=== PATIENT | female | born 1990 | race African-American/Black ===

== ENCOUNTER 2019-02-10 09:00 | Outpatient (RCR) | payer MEDICARE, MEDICAID, SELFPAY ==
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
--- NOTE | 2019-02-10 10:20 | BH.SGPN.GN ---
Behaviors/Verbalizations/Mental Status: [] Eye contact is good. Motor activity is appropriate. Appearance is discheveled. Speech is soft. Mood is depressed. Affect is flat. Thoughts are linear and logical. No evidence of psychosis. Client Response/Progress/Benefit: [] Pt provided input and insight at times adding to the group discussion. Did not add thoughts to the quote of the day. Group discussed the MH benefits to having open and clear communication with support and providers which included; it avoids mind-reading, decreases chances of confusion, helps us get our needs met, helps us get our goals met, helps us manage our symptoms (as support understands appropriate responses). Group also discussed the barriers that tend to impact clear and open communication which include; depression, anxiety, fear, embarrassment, pride, guilt, negative thoughts, feeling that if others know who we truly are they will not like us, and being vulnerable. Pt was attentive during psycho-education on communications styles (aggressive, passive, passive-aggressive, and assertive). Also provided input on the pros and cons to each communication style. Narrative Note: []
--- NOTE | 2019-02-10 11:15 | BH.SGPN.GN ---
Behaviors/Verbalizations/Mental Status: []Client alert and oriented, disheveled appearance. Eye contact fair. Motor activity appropriate. Speech within normal limits. Affect constricted, mood anxious. Thoughts linear, logical, no signs of hallucinations or delusions. Client Response/Progress/Benefit: []Client was a passive participant throughout session, but she engaged when prompted. Client reported she has had to be an aggressive communicator because of certain situations and people. However, client shared being aggressive ?only makes problems worse.? Client shared she wants to work on being more assertive to help get her needs met. Client engaged in activity and able to connect how ineffective communication negatively impacts mental health and relationships. Client identified her communication goal which is to seek safe spaces and people that will promote mental health help. Client seemed to benefit from increased insight into how her communication style impacts her mental health and relationships. Client?s first day of IOP. Client to continue IOP to prevent decompensation and increase mood stability.
--- NOTE | 2019-02-12 09:05 | BH.SGPN.GN ---
Behaviors/Verbalizations/Mental Status: []Client alert and oriented, disheveled appearance. Eye contact good. Motor activity appropriate. Speech within normal limits. Affect full, mood euthymic. Thoughts linear, logical, no signs of hallucinations or delusions. Reviewed client?s symptom tracker, no risk for suicidal ideation, plan, or intent as of 02/12/19. Client Response/Progress/Benefit: []Client responded well to session, attentive throughout. Client reports feeling ?good? today and more positive. Client stated her first day in IOP made her feels anxious and that she also experienced a trauma trigger that day prior to group. Client shared ?I?m better now.? Client?s current mental health wins include a determined outlook on her future and doing well in her college classes. Client reported no stressors today. Client is quiet and did not provide much detail on her wins, but she is still getting used to the group environment. Client appeared to benefit from connecting with peers and reflecting on her reduced anxiety. No progress to document at this time. Client to continue IOP to prevent decompensation and increase mood stability.
--- NOTE | 2019-02-12 10:13 | BH.SGPN.GN ---
Behaviors/Verbalizations/Mental Status: [Client alert and oriented, casual dress, hygiene fair. Eye contact fair to good. Motor activity appropriate. Speech within normal limits. Affect congruent, mood depressed. Thoughts linear, logical, no signs of hallucinations or delusions.] Client Response/Progress/Benefit: [Pt receptive to session, provided some input, though remained a mostly passive listener throughout discussion on stress. Able to brainstorm with the group positive and negative aspects of stress on physical and mental health. Pt participated in identifying current stressors impacting mental health. Pt's current stressors include: mental health, finances, occupational stress, lack of resources, and limited support system. Appeared to benefit from gaining awareness of own current stressors and learning about the impact stress has on overall wellbeing. Progress noted in improved ability to identify impact of stressors on maintaining mental health and wellbeing. Recommended continued IOP tx to improve healthy coping skills, improve mood stability, decrease depression, and prevent decompensation.] Narrative Note: []
--- NOTE | 2019-02-12 13:31 | BH.MTP ---
[facility] Treatment Plan - Patient Information Program Physician:: Dr. Martinez Primary Therapist:: Krystal Dior, [facility] - Psychiatric Diagnoses Psychiatric Diagnoses:: Persistent depressive disorder; chronic adjustment disorder with anxiety; rule out PTSD (questionable) Borderline personality disorder; mild intellectual disability Diagnosis Code(s):: F34. 1 - Estimated LOS Estimated LOS (in weeks):: 6 Problem/Goal #1 - Problem/Goal #1 Stated Goal:: Client will reduce depression, feelings of hopelessness, and suicidal ideation due to Major Depressive Disorder through Intensive Outpatient Program.? Description of Barriers: Poor emotion regulation, limited social support, financial issues, distorted thoughts and low motivation could be potential barriers to mental health. Functional Impact: The patient said that she has been depressed all of her life. Some level of depression is always there. She is depressed every day. Her sleep varies. Her appetite varies. Her energy level is low. She denies crying. She is sometimes able to enjoy things in life. Concentration is poor. She sometimes has hope for the future. She denies active suicidal thoughts, but said that she has often wished that she were . When stressed out she has a history of voicing suicidal thoughts. - Objectives Objective #1 Stated Objective: Client will identify 2-3 triggers and 2-3 coping skills to reduce her depressive symptoms that lead to suicidal thinking.?? Interventions: Therapist will help client identify her triggers and teach client coping strategies to effectively cope with depressive symptoms. Discharge Criteria: Client will have achieved this goal when can identify at least 2 triggers, verbalize two healthy coping strategies and defeat suicidal ideation. Target Date: 03/24/19 Review Date: 03/10/19 Objective #2 Stated Objective: Pt will decrease depressive symptoms AEB pt?s score on the DSM 5 cross-cutting measure and improve pt?s daily functioning. Interventions: Through groups and individual therapy, pt will be provided with education on cognitive distortions, mistaken beliefs, and identifying and combating negative self-talk. Therapist will assist pt with getting back into the activities she once enjoyed as well as increasing healthy coping strategies. Discharge Criteria: Pt will have met this goal when pt?s score on the DSM 5 cross cutting measure for depression has been decreased and per pt?s report daily functioning has improved. Target Date: 03/24/19 Review Date: 03/10/19 Problem/Goal #2 - Problem/Goal #2 Stated Goal:: Stabilize anxiety level, improve emotion regulation and increase ability to function on daily basis.? Description of Barriers: Poor emotion regulation, limited social support, financial issues, distorted thoughts and low motivation could be potential barriers to mental health. Functional Impact: The patient said that she has been depressed all of her life. Some level of depression is always there. She is depressed every day. Her sleep varies. Her appetite varies. Her energy level is low. She denies crying. She is sometimes able to enjoy things in life. Concentration is poor. She sometimes has hope for the future. She denies active suicidal thoughts, but said that she has often wished that she were . When stressed out she has a history of voicing suicidal thoughts. T - Objectives Objective #1 Stated Objective: Client will identify 2-3 anxiety triggers and 2 coping skills to use when feeling anxious. Interventions: Therapist will assist client in exploring what triggers anxiety and teach client coping strategies to effectively manage anxiety symptoms. Discharge Criteria: Client will have met this goal when can identify at least 2 triggers to anxiety and verbalize two healthy ways to cope with feelings of anxiety. Target Date: 03/24/19 Review Date: 03/10/19 Objective #2 Stated Objective: Client will learn and utilize 2-3 relaxation skills to utilize at bedtime.? Interventions: Therapist will teach client relaxation skills and help client identify ways to incorporate relaxation into daily bedtime routine.? Discharge Criteria: Client will have met this goal when she can verbalize at least 2 relaxation skills and has incorporated those skills into her bedtime routine. Target Date: 03/24/19 Review Date: 03/10/19
--- NOTE | 2019-02-12 14:30 | BH.MDN ---
Multi-Disciplinary Note - Note 30-min Individual Time Started:: 12:10 Date: 02/12/19 Purpose of session/treatment goals addressed:: Purpose of session was to assess pt's current symptoms and stressors and identify treatment goals for IOP. Eye Contact:: Fair Motor Activity:: Restless Appearance:: Disheveled Speech:: Appropriate Mood:: Anxious, Depressed Affect:: Congruent Thoughts:: Linear, Logical, No evidence of hallucinations/delusions noted Staff Interventions:: psychoeducation on: - cognitive triangle, CBT techniques, rapport building, treatment planning Client Response:: Pt responded well to session AEB pt engaging in discussion and openly sharing thoughts and feelings. Pt shared she is seeking treatment because her depression and anxiety is worsening which has impacted her functioning. Pt reported she had significant stress at work because she feels bullied. Receptive to strategies shared by therapist like listening to headphones while washing dishes. Pt reported while in IOP she would like to learn ways to manage her depression and anxiety more effectively. Pt stated she wants to learn ways to manage thoughts of suicide. Pt receptive to learning about cognitive triangle, able to understand connection between thoughts, feelings and behavior. Risks/Concerns:: Pt reports hx of chronic suicidal ideation. Denies active SI, plan or intention. future focused. Progress Toward Goals/Plan:: No progress noted given pts first week in program. Pt is to continue IOP to increase daily functioning, increase healthy coping skills and prevent decompensation. Time Stopped:: 12:35
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
--- NOTE | 2019-02-13 13:35 | BH.DR.ITP ---
Initial Treatment Plan - Patient Information Visit Information: ADMISSION DATE: 02/10/19 EXPECTED LOS: 4-6 weeks Diagnoses:: Persistent depressive disorder; chronic adjustment disorder with anxiety; borderline personality disorder; mild intellectual disability - Problems/Symptoms Problem #1:: depression Symptom:: low mood; thoughts of being better off ; feelings of hopelessness Problem #2:: anxiety Symptom:: lacks coping skills and gets easily stressed out Problem #3:: borderline personality disorder Symptom:: problems with emotional instability, interpersonal relationships, anger problems
--- NOTE | 2019-02-27 09:00 | BH.SGPN.GN ---
Behaviors/Verbalizations/Mental Status: []Client alert and oriented, disheveled appearance. Eye contact good. Motor activity appropriate. Speech within normal limits. Affect incongruent-reporting anger and agitation, but smiling and calm appearance. mood angry. Thoughts linear, logical, no signs of hallucinations or delusions. Reviewed client?s symptom tracker. Client reports a 5/5 for thoughts of suicide and 1/5 for risk. Client denies plan, or intent as of 02/27/19. Therapist to follow up with client. Client Response/Progress/Benefit: []Client responded well to session, short in her responses, but participating when prompted. Client reports feeling ?agitated? today, but she declined to provide details. Client shared her stressor is that she has been feeling high anxiety. Client stated listening to music typically helps her cope with anxiety and she plans to use this skill today. Client?s mental health positives include doing well on her schoolwork and looking forward to getting additional training for the career she wants to pursue. Client appeared to benefit from support provided by group on additional strategies to manage anxiety. Limited progress as client?s attendance is variable and she often leaves IOP before gaining psychoeducation and coping skills provided in illness management and functional skills groups. Will continue IOP to prevent decompensation and improve daily functioning.
--- NOTE | 2019-02-27 13:45 | BH.COMM_ITS ---
Communication Note - Communication with Client Communication Note: Therapist followed up with client due to her symptom tracker scores for suicidal ideations this morning. Client reported she has chronic suicidal thoughts, but client denies any active suicidal thoughts, plan or intent to act on those thoughts as of 02/27/19. Client reports plan to go to work tonight and was future oriented during conversation. Client stated school is her biggest motivator ?I have plans for my future.? Client reports ability to [place] in safety over the weekend and she has resources for crisis should her symptoms worsen.
[2019-03-27 11:33] VITALS: BP 110/66; PULSE 84; RESP 14
== END 2019-03-01 23:59 ==
LOC: BHIOP 09:00
PROVIDERS: Referring Provider Psychiatry & Neurology Psychiatry; Visit Provider Psychiatry & Neurology Psychiatry
DX: F34.1 Dysthymic disorder (principal); F43.22 Adjustment disorder with anxiety; F60.3 Borderline personality disorder; F70 Mild intellectual disabilities; R45.851 Suicidal ideations; Z91.14 Patient's other noncompliance with medication regimen; Z79.899 Other long term (current) drug therapy
CPT/HCPCS: H0035; 90832; 90853

== ENCOUNTER 2019-03-03 09:00 | Outpatient (RCR) | payer MEDICARE, MEDICAID, SELFPAY ==
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
--- NOTE | 2019-03-03 10:10 | BH.SGPN.GN ---
Behaviors/Verbalizations/Mental Status: []Client alert and oriented, disheveled appearance. Eye contact fair. Motor activity appropriate. Speech within normal limits- but off topic at times. Affect congruent, mood euthymic. Thoughts linear, logical, no signs of hallucinations or delusions. Client Response/Progress/Benefit: []Client was a participant in group discussions. Providing feedback occasionally to discussion. Client contributed to the discussion of the quote and mental health ?holes? people can fall into in life. The group and client worked together to identify barriers that keep one from choosing a new and healthier path to mental wellness which included; negative thinking, not using coping skills, lack of awareness, habit, fear of unknown, criminal background, unmanaged mental health symptoms, unhealthy coping skills, and lack of boundaries. Attentive during psycho-education on the chapters of life. Client was engaged in group and provided insight into what keeps one stuck on certain life chapters. Client reports belief she is currently in ?chapter 5? as client shared she quit a toxic job this weekend and plans to take another career path. With elicitation from reinforced concrete inspector, client gained awareness that one positive change is a step in the right direction, but it also requires ongoing maintenance of healthy choices. Benefited from increased awareness and education on barriers to choosing new wellness paths and chapters of life. Will continue IOP to prevent decompensation, improve self-care, and increase emotional regulation.
--- NOTE | 2019-03-03 11:10 | BH.SGPN.GN ---
Behaviors/Verbalizations/Mental Status: []Client alert and oriented, disheveled in appearance. Eye contact good. Motor activity appropriate. Speech within normal limits. Affect congruent to topic being discussed, mood euthymic. Thoughts linear, logical, no signs of hallucinations or delusions. Client Response/Progress/Benefit: []Client was an engaged participant in group discussion, contributing to discussion and listened attentively to others. Completed worksheet and willing to share with the group. Client reported believes she is in chapter 5? as client shared she is feeling more mentally stable. Client shared to get to the next chapter she will focus on consistently using healthy coping skills and learn from past behaviors. Benefited from group by identifying thoughts and behaviors that have kept her stuck and developing plan to promote progress. Will continue in IOP to improve consistent use of healthy skills, improve mood stability and prevent decompensation. Narrative Note: []
--- NOTE | 2019-03-11 15:03 | BH.DS_ITS ---
Discharge Summary - Demographics Date of Admission:: 02/10/19 Discharge Date: 03/11/19 Presenting Problems at Admission:: Pt [facility] for worsening depression and anxiety. Pt endorsed depressed mood with low energy, variable sleep, poor concentration, loss of interest, and passive thoughts of . Pt also endorses chronic anxiety, emotional dysregulation, and interpersonal problems. Discharge Diagnoses:: F34.1 Persistent depressive disorder; chronic adjustment disorder with anxiety; Borderline personality disorder; mild intellectual disability; rule out PTSD Reason for Discharge:: Pt attendance inconsistent throughout time in [facility]. Pt unable to commit to a minimum of 2 days a week for IOP level of care. - Treatment Progress During Treatment & Response: Pt progress limited given pt did not attend many IOP sessions. Pt also left early from [facility] on several occassions. Due to inconsistent attendance individiual IOP therapist could not meet with pt to help reach treatment goals. When pt did attend her participation was variable. At times she was engaged as shown by contributing thoughts and ideas and other times she was a passive participant. Issues Still to be Addressed:: Pt could benefit from learning healthy coping skills, processing past traumatic events, and improving emotional regulation. Pt also could benefit from building healthy support system, learning how to set boundaries with others, and setting realistic expectations. Discharge Recommendations/Instructions:: Pt recommended to continue to follow up with already established outpatient providers through [facility]. Discharge Handout: Complete Discharge Handout with client on aftercare options and continuity of care.
== END 2019-03-11 09:00 | disposition home or self-care (01) ==
LOC: BHIOP 09:00
PROVIDERS: Referring Provider Psychiatry & Neurology Psychiatry; Visit Provider Psychiatry & Neurology Psychiatry
DX: F34.1 Dysthymic disorder (principal); F43.22 Adjustment disorder with anxiety; F60.3 Borderline personality disorder; F70 Mild intellectual disabilities; R45.851 Suicidal ideations; Z91.14 Patient's other noncompliance with medication regimen; Z79.899 Other long term (current) drug therapy
CPT/HCPCS: H0035; 90853

== ENCOUNTER 2021-12-11 09:46 | Outpatient (RCR) | payer MEDICARE, MEDICAID, SELFPAY ==
--- NOTE | 2021-12-11 10:07 | BH.SGPN.GN ---
Behaviors/Verbalizations/Mental Status: []Client alert and oriented, casually dressed and groomed. Eye contact good. Motor activity appropriate. Speech within normal limits. Affect congruent, mood anxious. Thoughts linear, logical, no signs of hallucinations or delusions. Client Response/Progress/Benefit: []Client responded well to session AEB sharing and listening attentively to others. This is client?s first day of IOP treatment. Client provided examples during group discussion of benefits and barriers to change, including that change increases your wellbeing, and that it makes you leave your comfort zone. Client participated in experiential activity illustrating the emotions that go along with making change, and how they can be both positive and negative, appearing engaged throughout group processing. Clinician provided psychoeducation on the cognitive triangle, discussing how thoughts, emotions and behaviors are connected. Client appeared to benefit from increase knowledge of the benefits and barriers to making change, as well as how emotions are affected by change. Will continue IOP treatment to increase knowledge and application of healthy coping skills and prevent decompensation. Narrative Note: []
--- NOTE | 2021-12-11 11:10 | BH.SGPN.GN ---
Behaviors/Verbalizations/Mental Status: []Client alert and oriented, disheveled appearance. Eye contact good. Motor activity appropriate. Speech within normal limits. Affect constricted, mood anxious. Thoughts linear, logical, no signs of hallucinations or delusions. Client Response/Progress/Benefit: []Client responded well to session, attentive. Did well to process activity and work with group to relate the strategies used to overcome barriers in the activity to managing change in own life. Client identified a change they would like to make as getting more education on her diagnosis and mental health symptoms. Client reports barriers to change as toxic people and an unhealthy environment. Client set a goal of using a mood tracker to gain awareness of her symptoms and triggers. Appeared to benefit from identifying a small goal to work towards. First day of IOP tx. Client will continue IOP tx to prevent decompensation, gain healthy coping skills, and improve daily functioning. Narrative Note: []
--- NOTE | 2021-12-11 14:03 | BH.COMM_ITS ---
Communication Note - Communication with Client Communication Note: Pt completed initial paperwork and administered the [place] [facility]icide Screening. Pt has a history of 10 or more suicide attempts in her lifetime. Denies any attempts in the past three months. Denies any active SI, plan, or intent or thoughts of since her discharge from [facility] in [place] on 11/27. Pt is not an imminent risk to herself or others. Case discussed with Dr. Walter with verbal order to admit to IOP with dx of F 33.1.
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
--- NOTE | 2021-12-12 09:05 | BH.SGPN.GN ---
Behaviors/Verbalizations/Mental Status: []Pt alert and oriented, disheveled appearance. Eye contact good. Motor activity appropriate. Speech within normal limits. Affect congruent, mood euthymic. Thoughts linear, logical, no signs of hallucinations or delusions. Reviewed pt?s symptom tracker, no risk for suicidal ideation, plan, or intent as of 12/12/21. Client Response/Progress/Benefit: []pt responded well to session, attentive and engaged. Pt reports feeling optimistic this morning. Pt started IOP tx yesterday and pt reports she hopes to learn more about her symptoms and how to manage them. Pt's positives today include taking her medications daily and trying to get work done for school. Pt stated school is also a big stressor for her and so is work. Pt receptive to feedback from peers encouraging pt to continue working on self which will help pt manage stressors. Appeared to benefit from connecting with healthy supports. Will continue IOP tx to prevent decompensation, improve daily functioning, and increase distress tolerance skills. Narrative Note: []
--- NOTE | 2021-12-12 10:11 | BH.SGPN.GN ---
Behaviors/Verbalizations/Mental Status: []Client alert and oriented, casually dressed and groomed. Eye contact fair to good. Motor activity appropriate. Speech within normal limits, limited input provided. Affect constricted, mood anxious and depressed. Thoughts linear, logical, no signs of hallucinations or delusions. Client Response/Progress/Benefit: []Pt mostly engaged throughout AEB taking notes and providing some input when prompted, though remaining mostly passive throughout. Attentive during psychoeducation and discussed the importance of goal-setting with the group. Pt indicated that goals ?help us see where we are making progress?. Group identified potential benefits of having goals to include: they motivate, increase self-confidence, provide a sense of accomplishment, help you begin to create healthier habits, and can improve relationships with self and others. Group also worked together to identify barriers to goal-setting which included; fear of failure, limited resources, distortions, negative self-talk, doubt, and lack of support from others. Pt identified personal barriers to include trauma triggers and low motivation. Benefited from increased awareness of benefits and barriers to goal-setting. Pt will continue in IOP to prevent decompensation, increase healthy boundaries and further stabilize mood, as well as further improve daily functioning. Narrative Note: []
--- NOTE | 2021-12-12 11:12 | BH.SGPN.GN ---
Behaviors/Verbalizations/Mental Status: []Client alert and oriented, casually dressed and groomed. Eye contact fair to good. Motor activity appropriate. Speech within normal limits, quiet with limited input provided. Affect congruent, mood anxious and depressed. Thoughts linear, logical, no signs of hallucinations or delusions. Client Response/Progress/Benefit: []Pt was an active participant in group discussions and activities. Engaged in activity. Pt identified a SMART goal for the next week is to: take her medications consistently each day over the next week. Pt reported this would benefit her by helping improve mood and increase self-esteem. Identified poor lack of support and low motivation levels as potential barriers to completing this goal. Pt able to identify several solutions, such as, reaching out to her therapist, as well as set reminders throughout the day, that can help overcome identified barriers. Benefited from group by being able to utilize SMART educate to create a goal. Pt to continue IOP to continue to promote healthy boundaries and change behaviors, increase emotion regulation, and prevent decompensation. Narrative Note: []
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
--- NOTE | 2021-12-13 11:05 | BH.SGPN.GN ---
Behaviors/Verbalizations/Mental Status: []Pt alert and oriented, disheveled appearance. Eye contact good. Motor activity appropriate. Speech within normal limits. Affect constricted, mood euthymic. Thoughts linear, logical, no signs of hallucinations or delusions. Client Response/Progress/Benefit: []Pt receptive of session, engaged throughout AEB pt actively listening and contributing to discussion, as well as taking notes. Pt completed worksheet identifying personal pitfalls impacting mental health progress. Pt identified the following pitfalls: jumping into unhealthy relationships, impulsive decision making, and feeding into anger. Group learned different coping skills to help manage pitfalls. Pt selected the following coping skills to help with pitfalls: focusing on positive times when things did work, opposite action, and setting realistic goals. Benefited from identifying personal pitfalls and strategies to overcome these pitfalls. Will continue IOP tx to prevent decompensation, improve distress tolerance skills, and gain self-awareness. Narrative Note: []
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
--- NOTE | 2021-12-13 13:49 | BH.DR.ITP ---
Initial Treatment Plan Patient Information Visit Information: ADMISSION DATE: EXPECTED LOS: 4-6 weeks Problems/Symptoms Problem #1:: Depression and erratic moods Symptom:: Sadness, guilt, irritability, decreased motivation, anger, history of recent suicidal ideation Problem #2:: Anxiety Symptom:: Worry, panic attacks, avoidance, flashbacks, reexperiencing
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
--- NOTE | 2021-12-20 10:05 | BH.SGPN.GN ---
Behaviors/Verbalizations/Mental Status: []Client alert and oriented, casually dressed and groomed. Eye contact good. Motor activity appropriate. Speech within normal limits. Affect congruent, mood euthymic. Thoughts linear, logical, no signs of hallucinations or delusions. Client Response/Progress/Benefit: []Client responded well to session AEB sharing and listening attentively to others. Client was engaged throughout group discussion identifying common characteristics of ineffective communication and the benefits of effective communication.Client participated in group activity identifying communication styles, including passive, aggressive, passive aggressive, and assertive. Client appeared connected throughout group members identifying and providing examples of what each type of communication looks like in practice.. Client appeared to benefit from increased knowledge of communication styles and the benefits of healthy communication. Will continue IOP treatment to increase application of healthy coping skills and improve mood stability to increase daily functioning. Narrative Note: []
[2021-12-20 11:13] VITALS: BP 126/78; PULSE 57
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
--- NOTE | 2021-12-21 10:05 | BH.SGPN.GN ---
Behaviors/Verbalizations/Mental Status: []Client alert and oriented, casually dressed and groomed. Eye contact good. Motor activity appropriate. Speech within normal limits. Affect congruent, mood euthymic. Thoughts linear, logical, no signs of hallucinations or delusions. Client Response/Progress/Benefit: []Client responded well to session AEB sharing and listening attentively to others. Client participated in group discussion defining fixed mindset and what it can look like, with client stating that having a fixed mindset keeps us ?stuck?. Client was engaged throughout group discussion of how fixed mindset affects mental health and why we use fixed thoughts. Client participated in experiential activity encouraging clients to find solutions to a seemingly impossible task. Client aided group members in problem solving and completing the activity. Client identified a fixed thought keeping her stuck as ?I?m not enough?. Client appeared to benefit from increased knowledge of fixed mindset and self-awareness of personal fixed thoughts. Will continue IOP treatment to continue increasing application of healthy coping skills and decreasing rumination to improve daily functioning. Narrative Note: []
--- NOTE | 2021-12-21 11:10 | BH.SGPN.GN ---
Behaviors/Verbalizations/Mental Status: []Pt alert and oriented, disheveled appearance. Eye contact good. Motor activity appropriate. Speech within normal limits. Affect flat, mood numb. Thoughts linear, logical, no signs of hallucinations or delusions. Client Response/Progress/Benefit: []Pt tried to remain engaged and take notes throughout group, but reported she only got 4 hours of sleep. Pt did well to engage as group worked on identifying characteristics and benefits of adopting a growth mindset. Worked with fellow participants in reframing the example fixed thoughts into growth mindset thoughts, providing support throughout. Reframed personal fixed thought of ?I?m unlovable? with growth mindset thought of ?I?m not alone and I am good enough.? Pt shared that due to her stressors, being negative is happening more consistently. Benefitted from discussing benefits of growth mindset and brainstorming strategies for prompting growth-mindset. Will continue IOP tx to prevent decompensation, maintain safety, and gain healthy coping skills. Narrative Note: []
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
--- NOTE | 2021-12-26 10:15 | BH.SGPN.GN ---
Behaviors/Verbalizations/Mental Status: []Pt alert and oriented, disheveled appearance. Eye contact poor. Motor activity appropriate-head down at times. Speech within normal limits. Affect flat, mood tired and dysthymic. Thoughts linear, logical, no signs of hallucinations or delusions. Client Response/Progress/Benefit: []Pt was a passive participant during the discussion, but took some notes. Group discussed the origin of coping skills, examples of unhealthy coping, and why we use unhealthy coping skills. Pt was quiet during the discussion and reported being tired, but pt participated in the experiential activity that showed the importance of external supports and internal coping skills. Appeared to benefit from increased knowledge of internal coping skills and external supports. Pt will continue IOP tx to prevent decompensation, increase self-awareness, and maintain medication compliance. Narrative Note: []
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
--- NOTE | 2021-12-27 09:03 | BH.SGPN.GN ---
Behaviors/Verbalizations/Mental Status: []Eye contact is fair to good. Motor activity is appropriate. Appearance is casual, disheveled. Speech is Appropriate. Mood is anxious and dysthymic. Affect is constricted. Thoughts are linear and logical. No evidence of psychosis. Reviewed daily check in sheet and no reports of suicidal ideations or intent. Client Response/Progress/Benefit: []Pt was an active participant in group discussion. Provided appropriate feedback. Pt reported feeling more ?hopeful? today as she has made progress in remaining consistent with her medication and IOP attendance. Discussed trying to use IOP tx as an opportunity to expand her understanding of her own mental health dx and better recognize her triggers. Went on to discuss current stressor ongoing anxiety about completing her past due school assignments. Identified that she could reach out to her professors for additional support and accommodations if possible. Benefited from group support, encouragement, and feedback. Will continue in IOP to prevent decompensation, improve daily functioning, and improve healthy coping skills and boundary setting. Narrative Note: []
--- NOTE | 2021-12-27 10:10 | BH.SGPN.GN ---
Addendum entered and electronically signed by Lynda Marina 01/04/22 13:40: Reviewed and agree with findings. Original Note: Behaviors/Verbalizations/Mental Status: []Client alert and oriented, casually dressed and groomed. Eye contact good. Motor activity appropriate. Speech within normal limits. Affect congruent, mood euthymic. Thoughts linear, logical, no signs of hallucinations or delusions. Client Response/Progress/Benefit: []Client responded well to session AEB sharing and listening attentively to others. Client participated in photo activity illustrating how perspective affects the way we view others and ourselves. Client was engaged throughout group discussion of what goes into perspective. Clinician provided psychoeducation on how anxiety and depression become ?lenses? that we see the world through. Client participated in group discussion of how these lenses affect mental health treatment, with client stating it makes treatment ?like a rollercoaster?. Client appeared to benefit from increased knowledge of how anxiety and depression affects perspective. Will continue IOP treatment to increase mood stability and depression management skills to improve daily functioning. Narrative Note: []
--- NOTE | 2021-12-27 11:10 | BH.SGPN.GN ---
Behaviors/Verbalizations/Mental Status: []Pt alert and oriented, casually dressed and groomed. Eye contact fair. Motor activity appropriate. Speech within normal limits. Affect flat, mood content. Thoughts linear, logical, no signs of hallucinations or delusions. Client Response/Progress/Benefit: []Pt was attentive and took notes, quiet unless prompted but sharing in her small group. Pt completed strengths exploration worksheet and identified personal strengths to include: spirituality, adventurousness, and fairness. Pt shared that working to recognize these personal strengths more consistently will help improve pt?s mood, be more active, and feel better about herself. Shared wanting to focus on fostering personal strengths by practicing writing out her strengths to reinforce them. Benefited from identifying personal strengths and strategies for enhancing use of identified strengths. Pt to continue IOP tx to increase self-awareness of triggers and warning signs while increasing emotional regulation skills. Narrative Note: []
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
== END 2021-12-30 23:59 ==
LOC: BHIOP 09:46
PROVIDERS: Referring Provider Psychiatry & Neurology Psychiatry; Visit Provider Psychiatry & Neurology Psychiatry
DX: F33.1 Major depressive disorder, recurrent, moderate (principal); F43.10 Post-traumatic stress disorder, unspecified; F60.3 Borderline personality disorder; F70 Mild intellectual disabilities; Z79.899 Other long term (current) drug therapy; Z91.51 Personal history of suicidal behavior; Z91.410 Personal history of adult physical and sexual abuse; Z91.411 Personal history of adult psychological abuse
CPT/HCPCS: 90792; 99213; H2012; H2020; S9480; T1002; 90832

== ENCOUNTER 2022-01-01 08:02 | Outpatient (RCR) | payer MEDICARE, MEDICAID, SELFPAY ==
[2021-12-31 00:47] VITALS: BP 126/78; PULSE 57
--- NOTE | 2022-01-01 09:00 | BH.SGPN.GN ---
Behaviors/Verbalizations/Mental Status: []Pt alert and oriented, disheveled appearance Eye contact fair. Motor activity appropriate. Speech within normal limits. Affect flat, mood depressed. Thoughts linear, logical, no signs of hallucinations or delusions. Reviewed pt?s symptom tracker, no risk for suicidal ideation, plan, or intent as of 01/01/22. Client Response/Progress/Benefit: []Pt responded well to session, attentive and engaged with peers. Pt reports feeling shame this morning due to feeling like I should have more done with my life. The group helped pt recognize distortions and practice giving self credit. Pt able to identify getting to IOP as her positive today as pt did not get much sleep. Pt continues to report work and school stress, but pt shared both of these stressors should resolve in a few weeks. Pt appeared to benefit from connecting with peers and practicing in the moment coping skills. Pt will continue IOP tx to prevent decompensation, gain healthy coping skills, and improve self-awareness. Narrative Note: []
--- NOTE | 2022-01-01 11:10 | BH.SGPN.GN ---
Behaviors/Verbalizations/Mental Status: []Client alert and oriented, disheveled in appearance. Eye contact fair. Motor activity restless. Speech within normal limits. Affect constricted, mood dysthymic. Thoughts linear, logical, no signs of hallucinations or delusions. Client Response/Progress/Benefit: []Client responded well to session as evidenced by client listening attentively to others and providing strategies during small group discussion. Connected as fellow participants discussed the importance of identifying and addressing personal warning signs. Client identified warning signs for crisis and gained further awareness of earliest warning signs. Client created a crisis action plan to help client better manage warning signs for crisis. Client?s action plan for feeling disconnected includes: talking to a therapist, going to nature, support groups, listening to music, change environment, opposite action, and read bible. Client appeared to benefit from creating a crisis action plan and increasing self-awareness. Client to continue IOP tx to continue use of healthy coping skills, increase positive supprots and prevent decompensation.
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
--- NOTE | 2022-01-03 10:05 | BH.SGPN.GN ---
Behaviors/Verbalizations/Mental Status: [] Eye contact is good. Motor activity is appropriate. Appearance is casual. Speech is Appropriate. Mood is depressed. Affect is flat. Thoughts are linear and logical. No evidence of psychosis. Client Response/Progress/Benefit: [] Pt participated only when prompted. Attentive during psychoeducation on different anxiety disorders. Attentive during a interactive discussion on defining anxiety, identifying physiological symptoms of anxiety, and identifying safety behaviors (behaviors used to ease anxiety or discomfort which are often unhealthy). Physiological symptoms reported by patient were decreased sleep, racing thoughts, and restlessness. Along with peers identified common safety behaviors including; sleeping to cope, cancelling plans, not answering the phone, and utilizing substances to numb the pain. Benefited from increased awareness and insight on anxiety and its impact. Plan is to continue in IOP to maintain safety,increase healthy coping, and prevent decompensation. Narrative Note: []
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
--- NOTE | 2022-01-04 07:37 | BH.MDN ---
Multi-Disciplinary Note - Note 30-min Individual Time Started:: 10:15 Date: 01/04/22 Purpose of session/treatment goals addressed:: To discuss progress, barriers, and plan of care moving forward. Another goal was to identify additional resources pt could benefit from. Eye Contact:: Good Motor Activity:: Appropriate Appearance:: Disheveled - reports being showered, but appearance is disheveled. Mood:: Euthymic Affect:: Congruent Thoughts:: Linear, Logical Staff Interventions:: discharge planning, strengths perspective, reviewed DSM-5, other - discussed additional resources pt could benefit from including an adult adoptee support group. Client Response:: Pt responded well to session, open to meeting with therapist. Pt reports feeling very tired and shared that the combination of working late and coming to [facility] has been impacting her sleep. Pt shared she has been struggling to stay awake during groups and has her head down multiple times in sessions. Pt is at her review, so discussed the progress, benefits, and desire for continuation. Pt reports that she is benefitting from IOP, but she also feels like she would be ready to graduate next week and focus on outpatient counseling. Pt states she is doing better in regulating her emotions and no longer feels like she is on an emotional roller coaster. Pt continues to report stressors with work and her marriage, but pt is working with [employer] to find a new job. Pt is still unsure if she wants to stay with or leave her , but at this moment pt reports she does not feel unsafe at home. Pt continues to stay at the group home clinical partner and home clinical partner. Pt reports reduced stress now that school is almost done. Pt's DSM-5 scores overall decreased, but pt's anxiety, depression, and anger did not. When asked, pt shared that she feels she is feeling her emotions less intensely which is much better than it was a couple of months ago. Pt is also not self-harming or suicidal which is progress. Pt is established with outpatient services, but reports she would like to learn more about support groups for adoptees. This therapist will research support groups in pt's area. Risks/Concerns:: Pt denies any suicidal ideations, plan, or intent. Denies any HI. Denies any self-harm. Pt reports being more positive and no longer on an emotional roller coaster. Progress Toward Goals/Plan:: Pt reports she has benefitting from IOP tx and wants to discharge next week. Pt feels she would benefit from outpatient counseling, psychiatry, and would like to find a support group. Pt is also on the waiting list for [facility]'s PTSD IOP which pt will start hopefully in the next month per her report. Pt also reported that although IOP is helpful, pt has not been able to stay awake in group, as discussed above. Pt continues to report high scores for depression, anger, and anxiety, but pt self-reports that she is feeling her emotions less intensely. Pt will complete two days of IOP tx next week to reinforce healthy coping skills and find additional resources. Time Stopped:: 10:40
--- NOTE | 2022-01-04 09:10 | BH.SGPN.GN ---
Behaviors/Verbalizations/Mental Status: [] Eye contact is good. Motor activity is appropriate. Appearance is disheveled. Speech is Appropriate. Mood is depressed. Affect is flat. Thoughts are linear and logical. No evidence of psychosis. Reviewed daily check in sheet and no reports of suicidal ideations or intent. Client Response/Progress/Benefit: [] Pt participated when prompted. Attentive at times, however noticed pt was drowsy for moments. Daily symptom tracker notes no significant distress. Emotion for today is excited. Mental health wins include taking a shower and passing all my school assignments. Shared that her college semester has come to an end and despite all the stressors and obstacles she encountered she was able to pass all of her classes. She has a break from school till the fall. Pt reports mental health benefits from passing college courses and working towards a degree. When asked how she has been managing her emotions she states Better ... I'm improving because I'm not on such a rollercoaster of emotion. Shared the distress she has had over the past several months related to her relationship, housing, and job. Pt's check-in as very short. Benefited from group support and encouragment. Will continue in IOP to prevent decompensation and stablize mood. Narrative Note: []
--- NOTE | 2022-01-10 10:08 | BH.SGPN.GN ---
Behaviors/Verbalizations/Mental Status: []Client alert and oriented, casually dressed and groomed. Eye contact fair, often looking at phone. Motor activity appropriate. Speech within normal limits, quiet with limited input provided. Affect constricted, mood depressed and agitated. Thoughts appearing distracted by stressors outside of group environment, no signs of hallucinations or delusions. Client Response/Progress/Benefit: []Pt struggled to engage in both psychoeducation and activity portions of session, often looking at phone or leaving group room to use the restroom. During activity portion, pt appeared distracted by own thoughts and did not participate or provide input or suggestions to group. Pt limited group engagement has significantly hindered ability to make progress throughout IOP tx. Pt is scheduled to discharge from [facility] on this date and continue with outpatient services. Recommended continued focus on mood stability, healthy boundaries, and consistency in mental health tx. Narrative Note: []
--- NOTE | 2022-01-10 11:08 | BH.SGPN.GN ---
Behaviors/Verbalizations/Mental Status: []Pt alert and oriented, disheveled appearance. Eye contact good. Motor activity appropriate. Speech within normal limits. Affect constricted, mood depressed and agitated. Thoughts linear, logical, no signs of hallucinations or delusions. Client Response/Progress/Benefit: []Pt receptive of session, engaged throughout AEB pt actively listening and contributing to discussion, as well as taking notes. Pt completed worksheet identifying personal pitfalls impacting mental health progress. Pt identified the following pitfalls: not setting boundaries, avoidance, externalizing, and not having awareness of her triggers and warning signs. Pt recognizes these pitfalls often lead to worsening mental health symptoms and ruined relationships. Group learned different coping skills to help manage pitfalls. Pt selected the following coping skills to help with pitfalls: thought challenging, walking ,and listening to music Pt reports plan to start writing down what she wants to say before saying it to avoid lashing out or externalizing. Benefited from identifying personal pitfalls and strategies to overcome these pitfalls. Will discharge from IOP tx as pt plans to continue with outpatient counseling and will be starting [facility] trauma IOP in a couple weeks. Pt reports benefitting from IOP tx and feels that she has improved in some areas. Narrative Note: []
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
== END 2022-01-11 07:35 | disposition home or self-care (01) ==
LOC: BHIOP 08:02
PROVIDERS: Referring Provider Psychiatry & Neurology Psychiatry; Visit Provider Psychiatry & Neurology Psychiatry
DX: F33.1 Major depressive disorder, recurrent, moderate (principal); F43.10 Post-traumatic stress disorder, unspecified; F60.3 Borderline personality disorder; F70 Mild intellectual disabilities; Z79.899 Other long term (current) drug therapy
CPT/HCPCS: H2012; H2020; S9480; 90832

== ENCOUNTER 2023-09-05 07:48 | Inpatient (IN) | payer MEDICARE, MEDICAID, SELFPAY ==
[2023-09-04 21:03] VITALS: PULSE 76; O2SAT 100
[2023-09-04 21:04] VITALS: BP 136/82; PULSE 73; TEMP 36.2
[2023-09-04 21:08] VITALS: PULSE 69; O2SAT 100
[2023-09-04] MEDS: Lactated Ringers 1,000 ML 999 ML IV (21:35)
[2023-09-04 21:50] VITALS: BMI 27.8
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
[2023-09-04 22:02] LABS: Absolute Neutrophil Count 4.4 X10^3/uL (2.0-7.7); Basophil# 0.02 X10^3/uL; Basophil% 0.3 % (0-1); Eosinophil# 0.05 X10^3/uL; Eosinophils% 0.7 % (0-5); Hematocrit 36.8 % (37-47); Hemoglobin 11.3 g/dL (12.0-15.0); Lymphocyte % 25.3 % (19-41); Mean Corp Hgb Conc 30.7 g/dL (32-36); Mean Corpuscular Hgb 27.1 pg (27.0-32.0); Mean Corpuscular Volume 88.2 fL (81-99); Mean Platelet Vol. 11.6 fl (6.2-12.0); Monocyte# 0.57 X10^3/uL; Monocyte% 8.5 % (0-10); NRBC Flagged by Analyzer 0 % (0-5); Neutrophil # 4.35 X10^3/uL (2.7-7.7); Neutrophil % 64.6 % (47-70); Platelet Count 182 K/mm3 (150-450); RBC Distribution Width CV 13.7 % (11.6-14.6); RBC Distribution Width SD 44.2 fl (35.1-43.9); Red Blood Count 4.17 M/mm3 (4.2-5.4); White Blood Count 6.7 K/mm3 (4.4-11.0)
[2023-09-04 22:09] VITALS: PULSE 79; O2SAT 100
[2023-09-04 22:11] LABS: Fibrinogen 496 mg/dl (203-444)
[2023-09-04 22:13] LABS: AST(SGOT) 19 U/L (15-37); Alanine Aminotransfer ALT/SGPT 17 U/L (13-56); Creatinine, Serum 0.75 mg/dL (0.55-1.02); EST Glomerular Filtration Rate 96 mL/min (>60); Est Glom Filt Rate - Afr Amer 116 mL/min (>60); Estimated Creatinine Clearance 82.01 ml/min; Uric Acid 4.3 mg/dL (2.6-6.0)
[2023-09-04 22:32] LABS: Mucous, Urine 0 SEEN /hpf (<or=2+); Red Blood Cells-Urine 0 SEEN /hpf (0-5)
[2023-09-04 22:33] LABS: Color, Urine Yellow (Yellow); Glucose, Dipstick Normal (Normal); Ketone-Dipstick 50 mg/dl (Negative); Leukocyte Esterase-Dipstick 500 /ul (Negative); Nitrite-Dipstick Negative (Negative); Occult Blood-Urine 10 /ul (Negative); Protein-Dipstick 15 mg/dl (Negative); Urine Bilirubin Dipstick Negative (Negative); Urine Clarity Sl. Cloudy (Clear); Urine Urobilinogen 1 mg/dl (Normal)
[2023-09-04 22:41] LABS: Squamous Epithelial Cells - UA 10-25 SEEN /hpf (5-10)
[2023-09-04 22:42] LABS: Bacteria RARE /hpf (None Seen); White Blood Cells 25-50 SEEN /hpf (0-5)
[2023-09-04] MEDS: Acetaminophen 500 MG Tablet 1000 MG PO (22:50)
[2023-09-04 22:51] LABS: Protein, Urine (Random) 11.3 mg/dL (<11.9); Protein:Creat Ratio 63 mg/g CRE (0-200)
[2023-09-04 22:57] LABS: Amphetamine Urine VISTA NEGATIVE (<1000 ng/mL); Barbiturate Urine VISTA NEGATIVE (< 200 ng/mL); Benzodiazepine Urine VISTA NEGATIVE (< 200 ng/mL); Cocaine Urine VISTA NEGATIVE (< 300 ng/mL); Ecstacy Urine VISTA NEGATIVE (< 500 ng/mL); Methadone Urine VISTA NEGATIVE (< 300 ng/mL); PCP Urine VISTA NEGATIVE (< 25 ng/mL); THC Urine VISTA NEGATIVE (< 50 ng/mL); Vista UDS pH Range 6
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
[2023-09-05] VITALS (44 sets, daily range): BP systolic 87–143; BP diastolic 52–99; PULSE 51–171; RESP 14–21; TEMP 36.2–36.9; O2SAT 81–100
[2023-09-05 00:09] LABS: Rubella IgG Reactive (Nonreactive); Syphilis Antibodies Non-reactive
[2023-09-05 00:31] LABS: Hepatitis B Surface Antigen Non-Reactive (Nonreactive); Hepatitis C Antibody Non-Reactive (Nonreactive)
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
[2023-09-05] MEDS: Acetaminophen 500 MG Tablet 1000 MG PO ×3 (06:51→19:00)
--- NOTE | 2023-09-05 07:34 | PCM.PN.BLA ---
Progress Note tracing reviewed and care discussed with nursing and patient and DR. Quintanilla- taking over call today. Decision for admission due to continued pelvic pain and pat did have subtle late deceleration 5:15am. Category 1 since that time.
[2023-09-05 08:37] LABS: Color, Urine YELLOW (Yellow); Glucose, Dipstick Normal (Normal); Ketone-Dipstick Negative (Negative); Leukocyte Esterase-Dipstick 500 /ul (Negative); Nitrite-Dipstick Negative (Negative); Occult Blood-Urine 10 /ul (Negative); Protein-Dipstick 15 mg/dl (Negative); Urine Bilirubin Dipstick Negative (Negative); Urine Clarity Sl Cldy (Clear); Urine Urobilinogen Normal (Normal)
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
[2023-09-05] MEDS: CHLORHEXIDINE GLUC 2% CLOTH 1 EACH TOWELETTE TOPICAL (10:00)
[2023-09-05] MEDS: LACTATED RINGERS 500 ML 999 ML IV (10:49)
[2023-09-05] MEDS: Oxytocin 15 Units/NS 250ml 15 UNITS/250 ML IV.SOLN 2 UNITS IV (12:19)
[2023-09-05] MEDS: fentaNYL-bupivacaine (epidural) 100 ML BAG EPIDURAL (12:20)
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
[2023-09-05] MEDS: Lactated Ringers 1,000 ML 200 ML IV (14:50)
[2023-09-05] MEDS: Amnioinfusion- 0.9% NS 1,000 ML IV.SOLN. 500 ML INTRA-UTER (14:53)
[2023-09-05] MEDS: Sodium Citrate/Citric Acid 30 ML UDC PO (15:18)
[2023-09-05] MEDS: Cefazolin 2 GM in 0.9% Normal Saline (100mL Bag) 100 ML IV (15:32)
--- NOTE | 2023-09-05 15:36 | PLAC_PTH ---
PATIENT: ZI ISRAEL LOC: WP U#:[id number] AGE/SX: 33/F ROOM: WP013 RE09/05/[address]: Dr. Lianna Dominguez MD : 1990 BED: 1 DIS: 09/08/2023 SPEC #: [id number] RECD: 09/06/23 07:39 STATUS: RANJAN SHEILA #: [id number] ALISE: 09/05/23 15:[address]: Lianna Dominguez DEPT: SURGICAL PATHOLOGY RECD BY: Elaina Du ENTERED: 09/06/23 07:39 SP TYPE: PLACENTA OTHR DR: No Primary Care Phys Tissues: Placenta, NOS Procedures: Surgery Specimen Level V HEADER OPERATION: Primary section PRE-OP DIAGNOSIS: Rule out abruption TISSUE SUBMITTED: Placenta MICROSCOPIC DIAGNOSIS Placenta: Placental disc - third trimester placenta (430 gm). Membranes - no pathologic diagnosis. Umbilical cord - three blood vessels and no pathologic diagnosis. SJ:anna 09/10/2023 MICROSCOPIC DESCRIPTION Slides are reviewed. GROSS DESCRIPTION SPECIMEN: PLACENTA / CLINICAL INFORMATION: A. Weight: 3.085 kg B. Gestational Age: 38 weeks C. Sex: Male PLACENTAL WEIGHT (POST FIXATION): 430 gm PLACENTAL DIMENSIONS: 16.0 x 15.0 x 3.0 cm PLACENTAL SHAPE: Usual ovoid PLACENTAL WEIGHT FOR GESTATIONAL AGE: Within 10-99th percentile MEMBRANES - Present A. Insertion: Marginal B. Site of rupture from edge: 9.0 cm from edge of placental disc C. Color of membrane: Martin-rice D. Abnormalities: None UMBILICAL CORD - Present A. Color: Martin-rice B. Insertion: Paracentral C. Length: 28.0 cm D. Diameter: 1.5 cm E. Number of vessels: Three F. Abnormalities: None PLACENTAL DISC - Present A. Color of surface: Martin-rice B. surface abnormalities: None C. Maternal cotyledons: Intact with minimal tears D. Attached retro placental clot: No clot E. Cut surface: Dark red and spongy F. Lesions: None G. Separate clot: Absent SECTIONS SUBMITTED: 1. Membrane roll 2. Cord, maternal end 3. Cord, end 4. Placental disc, and maternal surfaces 5. Placental disc, and maternal surfaces 6. Placental disc, and maternal surfaces SJ:anna 09/09/2023 TC:4 CPT: 02949
[2023-09-05] MEDS: Azithromycin 500 MG in Dextrose 5%-Water (250mL Bag) 250 ML 250 MG IV (16:00)
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
[2023-09-05] MEDS: Methylergonovine 0.2 MG/ML Ampul IM (16:07)
[2023-09-05] MEDS: Oxytocin 15 Units/NS 250ml 15 UNITS/250 ML IV.SOLN 83 UNITS IV (16:15)
[2023-09-05 16:55] LABS: Pathology Specimen OB SEE PATHOLOGY REPORT
[2023-09-05] MEDS: Ketorolac 30 MG/ML Syringe IV ×2 (17:19→23:27)
[2023-09-05] MEDS: Lactated Ringers 1,000 ML 100 ML IV (20:23)
--- NOTE | 2023-09-05 20:45 | NURSING ---
During 2030 VS and assessment, a soft lump palpated above and to the right of her umbilicus was felt/ observed. Abdominal girth was completed at this time as RN continues to monitor. Bowel sounds are hypoactive at this time, pt denies nausea at this time and RN encouraged pt let RN know if she does. Pt verbalized understanding. Charge nurse was also notified and observed as well.
[2023-09-05] MEDS: 0.9% Saline Lock 10 ML Syringe IV (23:27)
[2023-09-06] VITALS (12 sets, daily range): BP systolic 108–134; BP diastolic 60–82; PULSE 56–70; RESP 15–18; TEMP 36.7–36.9; O2SAT 99–100
--- NOTE | 2023-09-06 00:30 | NURSING ---
Pt reports passing flatus and abdomen improving.
[2023-09-06] MEDS: Acetaminophen 500 MG Tablet 1000 MG PO ×4 (01:13→21:33)
[2023-09-06] MEDS: LACTATED RINGERS 500 ML 999 ML IV (02:45)
[2023-09-06] MEDS: Lactated Ringers 1,000 ML 100 ML IV (03:44)
[2023-09-06] MEDS: Ketorolac 30 MG/ML Syringe IV ×2 (05:34→11:12)
[2023-09-06 06:08] LABS: Hematocrit 33.9 % (37-47); Hemoglobin 10.9 g/dL (12.0-15.0); Mean Corp Hgb Conc 32.2 g/dL (32-36); Mean Corpuscular Hgb 27.9 pg (27.0-32.0); Mean Corpuscular Volume 86.9 fL (81-99); Mean Platelet Vol. 11.3 fl (6.2-12.0); Platelet Count 171 K/mm3 (150-450); RBC Distribution Width CV 13.7 % (11.6-14.6); RBC Distribution Width SD 43.4 fl (35.1-43.9); White Blood Count 12.1 K/mm3 (4.4-11.0)
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
[2023-09-06] MEDS: 0.9% Saline Lock 10 ML Syringe IV (11:12)
[2023-09-06] MEDS: Senna/Docusate Sodium 1 Tablet PO (11:12)
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
[2023-09-06] MEDS: Ibuprofen 600 MG Tablet PO (19:24)
[2023-09-06] MEDS: oxyCODONE 5 MG Tablet PO (20:32)
[2023-09-07] VITALS (8 sets, daily range): BP systolic 130–139; BP diastolic 75–90; PULSE 58–75; RESP 14–16; TEMP 36.6–36.8; O2SAT 79–100
[2023-09-07] MEDS: Ibuprofen 600 MG Tablet PO ×4 (00:37→20:16)
[2023-09-07] MEDS: Acetaminophen 500 MG Tablet 1000 MG PO ×4 (03:13→21:46)
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
[2023-09-07] MEDS: Senna/Docusate Sodium 1 Tablet PO (08:43)
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
[2023-09-07] MEDS: Ondansetron 8 MG Tablet PO (18:30)
[2023-09-08] VITALS (7 sets, daily range): BP systolic 135–153; BP diastolic 78–91; PULSE 56–67; RESP 14–18; TEMP 36.3–36.8; O2SAT 99–100
[2023-09-08] MEDS: Ibuprofen 600 MG Tablet PO ×3 (02:25→14:28)
[2023-09-08] MEDS: Acetaminophen 500 MG Tablet 1000 MG PO ×2 (04:00→10:09)
[2023-09-08 04:33] LABS: Hematocrit 29.8 % (37-47); Hemoglobin 9.4 g/dL (12.0-15.0); Mean Corp Hgb Conc 31.5 g/dL (32-36); Mean Corpuscular Hgb 27.9 pg (27.0-32.0); Mean Corpuscular Volume 88.4 fL (81-99); Mean Platelet Vol. 10.9 fl (6.2-12.0); Platelet Count 189 K/mm3 (150-450); RBC Distribution Width CV 13.7 % (11.6-14.6); RBC Distribution Width SD 44.4 fl (35.1-43.9); Red Blood Count 3.37 M/mm3 (4.2-5.4); White Blood Count 10.2 K/mm3 (4.4-11.0)
[2023-09-08 04:47] LABS: AST(SGOT) 22 U/L (15-37); Alanine Aminotransfer ALT/SGPT 14 U/L (13-56); Creatinine, Serum 0.86 mg/dL (0.55-1.02); EST Glomerular Filtration Rate 82 mL/min (>60); Est Glom Filt Rate - Afr Amer 99 mL/min (>60); Estimated Creatinine Clearance 71.52 ml/min; Uric Acid 4.1 mg/dL (2.6-6.0)
--- NOTE | 2023-09-08 05:55 | NURSING ---
Report given to Rose DIETZ, taking over pt and care at this time.
[2023-09-08] MEDS: oxyCODONE 5 MG Tablet PO ×2 (08:13→13:52)
[2023-09-08] MEDS: Ondansetron 8 MG Tablet PO (08:14)
[2023-09-08] MEDS: Senna/Docusate Sodium 1 Tablet PO (10:09)
--- NOTE | 2023-09-08 15:18 | NURSING ---
Christal martínez [facility] notified of patient's discharge.
== END 2023-09-08 15:10 | disposition home or self-care (01) | DRG 787 ==
LOC: WPOUT 07:51 → WP 08:01
PROVIDERS: Advanced Practice Midwife; Admitting Provider Obstetrics & Gynecology; Visit Provider Obstetrics & Gynecology
DX: O76 Abnormality in fetal heart rate and rhythm complicating labor and delivery (principal); F33.1 Major depressive disorder, recurrent, moderate; F60.3 Borderline personality disorder; F43.22 Adjustment disorder with anxiety; S39.91XA Unspecified injury of abdomen, initial encounter; Y04.8XXA Assault by other bodily force, initial encounter; O99.344 Other mental disorders complicating childbirth; Z37.0 Single live birth; O9A.32 Physical abuse complicating childbirth; Z65.8 Other specified problems related to psychosocial circumstances; Z63.79 Other stressful life events affecting family and household; Z3A.38 38 weeks gestation of pregnancy
CPT/HCPCS: 59025; 59050; 72170; 76819; 80307; 81001; 81002; 82565; 82570; 84156; 84450; 84460; 84550; 85025; 85027; 85384; 86762; 86780; 86803; 86850; 86900; 86901; 87340; 88307; 99221; J7030; J7120; A4216; G0378; J2405

== ENCOUNTER 2023-09-11 12:20 | Observation (INO) | payer MEDICARE, MEDICAID, SELFPAY ==
[2023-09-11] VITALS (100 sets, daily range): BP systolic 114–209; BP diastolic 79–110; PULSE 44–90; RESP 15–18; TEMP 36.4–37; O2SAT 96–100; BMI 61.2
--- NOTE | 2023-09-11 12:22 | EKG12_ITS ---
Test Reason : CP/SOB Blood Pressure : / mmHG Vent. Rate : 044 BPM Atrial Rate : 044 BPM P-R Int : 126 ms QRS Dur : 082 ms QT Int : 450 ms P-R-T Axes : 050 078 025 degrees QTc Int : 384 ms Marked sinus bradycardia Low voltage QRS Abnormal ECG Confirmed by SERA WILSON, ANDRIA ([id number]), electronic news gathering editor JOSE LUIS GRIFFIN ([id number]) on 09/13/2023 7:13:53 AM Referred By: Indu Mchugh Confirmed By:ANDRIA ZAMORA MD
[2023-09-11] MEDS: Lactated Ringers 1,000 ML 25 ML IV (13:15)
[2023-09-11] MEDS: Magnesium Sulfate 4gm/100mL 4 GM/100 ML IV.SOLN. IV (13:26)
[2023-09-11] MEDS: hydrALAZINE 20 MG/ML Vial 5 MG IV (13:31)
[2023-09-11 13:42] LABS: Hematocrit 30.3 % (37-47); Hemoglobin 9.6 g/dL (12.0-15.0); Mean Corp Hgb Conc 31.7 g/dL (32-36); Mean Corpuscular Hgb 27.6 pg (27.0-32.0); Mean Corpuscular Volume 87.1 fL (81-99); Mean Platelet Vol. 10.4 fl (6.2-12.0); Platelet Count 258 K/mm3 (150-450); RBC Distribution Width CV 13.7 % (11.6-14.6); Red Blood Count 3.48 M/mm3 (4.2-5.4); White Blood Count 5.5 K/mm3 (4.4-11.0)
[2023-09-11] MEDS: Magnesium Sulfate 20 GM/500 ML BAG IV (13:47)
[2023-09-11] MEDS: hydrALAZINE 20 MG/ML Vial 10 MG IV (13:50)
--- NOTE | 2023-09-11 14:34 | ECHOD_ITS ---
Procedure This was a 2D Doppler, Color Flow transthoracic echocardiogram. Exam performed portable in patient room. Exam performed in supine reclining position. Left Ventricle Normal LV size. Left ventricular systolic function is normal. The estimated ejection fraction is 65 %. Normal diastology for age. No regional wall motion abnormalities noted. Right Ventricle Normal RV size. Normal systolic function. Atria Normal left atrium. Normal right atrium. Mitral Valve Normal mitral valve. Tricuspid Valve Normal tricuspid valve. Aortic Valve Normal aortic valve. Pulmonic Valve Normal pulmonic valve. Great Vessels Normal aortic root. The pulmonary artery is normal size. Normal inferior vena cava. Pericardium/Pleural No pericardial effusion. MMode/2D Measurements & Calculations LVIDd: 4.3 cm IVSd: 1.2 cm Ao root diam: 2.4 cm LVIDs: 1.9 cm LVPWd: 1.1 cm LA dimension: 4.1 cm RVDd: 3.0 cm FS: 56.7 % LAV(MOD-bp): 53.3 ml LVAd ap4: 26.6 cm2 LVAd ap2: 24.0 cm2 LAV(MOD-sp2): 52.5 ml LVLd ap4: 8.4 cm LVLd ap2: 7.9 cm LAV(MOD-sp4): 52.5 ml EDV(MOD-sp4): 73.5 ml EDV(MOD-sp2): 61.3 ml EDV(sp4-el): 71.5 ml EDV(sp2-el): 61.7 ml LVAs ap4: 8.9 cm2 LVAs ap2: 7.4 cm2 LVLs ap4: 6.3 cm LVLs ap2: 5.7 cm ESV(MOD-sp4): 11.0 ml ESV(MOD-sp2): 9.1 ml ESV(sp4-el): 10.6 ml ESV(sp2-el): 8.1 ml EF(MOD-sp4): 85.1 % EF(MOD-sp2): 85.1 % EF(sp4-el): 85.1 % SV(MOD-sp4): 62.5 ml SV(MOD-sp2): 52.2 ml SV(sp4-el): 60.8 ml TAPSE: 3.2 cm LA A4 area: 19.0 cm2 RA A4 area: 15.1 cm2 Time Measurements MV dec time: 0.17 sec Doppler Measurements & Calculations MV E max lionel: 73.1 cm/sec Lat Peak E' Lionel: 14.5 cm/sec Med Peak E' Lionel: 11.1 cm/sec MV A max lionel: 66.7 cm/sec E/E' lat: 5.0 E/E' med: 6.6 MV E/A: 1.1 MV V2 max: 109.4 cm/sec MV P1/2t max lionel: 102.4 cm/sec Ao V2 max: 190.7 cm/sec MV max P.8 mmHg MV P1/2t: 58.3 msec Ao max P.5 mmHg MV V2 mean: 60.3 cm/sec MV dec slope: 514.4 cm/sec2 Ao V2 mean: 129.8 cm/sec MV mean P.7 mmHg Ao mean P.5 mmHg MV V2 VTI: 23.5 cm MVA(P1/2t): 3.8 cm2 Ao V2 VTI: 38.6 cm AV (velocity ratio): 0.84 LV V1 max: 158.9 cm/sec PA V2 max: 165.6 cm/sec PI dec slope: 374.4 cm/sec2 LV V1 max P.1 mmHg PA V2 mean: 107.1 cm/sec LV V1 mean P.4 mmHg PA V2 VTI: 38.7 cm LV V1 mean: 110.4 cm/sec LV V1 VTI: 32.5 cm ECHO/Echo Complete Interpretation Summary Normal LV size. Left ventricular systolic function is normal. The estimated ejection fraction is 65 %. Normal diastology for age. Structurally normal valves. Ordering Physician: Rebekah Bazan Referring Physician: Indu Mchugh Performed By: Kelly Cordero, MARY, RVT
[2023-09-11] MEDS: hydrALAZINE 10 MG Tablet 20 MG PO ×2 (14:51→22:16)
[2023-09-11 15:00] LABS: Protein, Urine (Random) 62.9 mg/dL (<11.9); Protein:Creat Ratio 588 mg/g CRE (0-200)
[2023-09-11 15:22] LABS: Bedside Glucose 65 mg/dL (74-106)
--- NOTE | 2023-09-11 15:39 | NURSING ---
BP cuff on. Evaluating every 10 minutes. This RN continuously at bedside monitoring the Q10 min BP readings. Upon review of documentation, it was noted that several BP readings did not transfer to meditech.
--- NOTE | 2023-09-11 16:00 | NURSING ---
1545 attempted 6 times to obtain the bmp blood work lab called to come draw
--- NOTE | 2023-09-11 16:02 | NURSING ---
bmp drawn by lab and echo completed in room.
[2023-09-11 16:57] LABS: AST(SGOT) 27 U/L (15-37); Alanine Aminotransfer ALT/SGPT 30 U/L (13-56); Creatinine, Serum 1.83 mg/dL (0.55-1.02); EST Glomerular Filtration Rate 34 mL/min (>60); Est Glom Filt Rate - Afr Amer 41 mL/min (>60); Estimated Creatinine Clearance 61.51 ml/min; Uric Acid 7.1 mg/dL (2.6-6.0)
--- NOTE | 2023-09-11 17:08 | HP.PCM.OB_ITS ---
History and Physical Date of Admission: 09/11/23 33-year-old female status post on 09/05/2023 presents to [facility] ER for chest pain she was sent from the ER to labor and delivery for elevated blood pressures in the severe range. Patient reports chest tightness and just not feeling well over the last few days. Patient reports that since admission her shortness of breath is improving chest pain has slightly improved. Patient reports a history of elevated blood pressures in her past but cannot specify any details. Patient had no complications with the section reports mild lochia. Denies any headache or visual changes. Abd: soft, No RUQ tenderness. Ext: Relfexes +2 LE, No clonus Assessment & Plan Assessment/Plan (1) Status post primary low transverse section: (2) Care and examination of lactating mother: (3) Post-operative pain: (4) Pre-eclampsia in period: PLAN: Plan HD#0 - admission for Post PRE Eclampsia w/ severe features 1) Hydralazine protocol with Magnesium - 4g/hr then 1g per hour (bradycardia on admission 40s) 2) EKG in ER 3) FLuid restriction 150cc hr 4) Pain mgmt with toradol and tylenol 5) Continue magnesium x 24 hrs 6) PRE E labs 7) ECHO done awaiting results 8) Regular diet
[2023-09-11] MEDS: Acetaminophen 500 MG Tablet 1000 MG PO (19:21)
[2023-09-12] VITALS (212 sets, daily range): BP systolic 135–180; BP diastolic 74–101; PULSE 57–115; RESP 15–17; TEMP 36.5–36.8; O2SAT 84–100
[2023-09-12] MEDS: hydrALAZINE 20 MG/ML Vial 10 MG IV (00:28)
[2023-09-12] MEDS: NIFEdipine 30 MG Tablet PO ×3 (01:10→18:24)
[2023-09-12] MEDS: hydrALAZINE 10 MG Tablet 20 MG PO ×3 (06:14→22:07)
--- NOTE | 2023-09-12 08:45 | CASEMGMT ---
Social Work SW spoke w/MOB in regard to transportation back to the assisted when she is discharged(MOB staying at [facility]). MOB states she thinks that someone from [facility] will likely pick her up. Her sister is here but MOB not certain how long she will be here. SW explained will call the assisted to find out. SW then spoke w/MOB's sister outside the room. She states she is not sure how long she is staying, she lives in [place]. She states that there is no car seat for baby here, it's back in MOB's car at the assisted. SW explained will call the assisted to see if they can give her a ride home at discharge. SW called Dinora Mondragon, message left. She called back a short time later. She states they can give her a ride home whenever MOB and baby are ready, MOB just needs to call. PERNELL explained this to MOB and her sister. To clarify, the car seat is here but the base is in MOB's car. MOB's keys are here, SW let Dinora know. She states someone can come get the keys to get the base and then come back to get MOB and baby. SW let MOB and MOB's sister know. MOB has the number to call when she is discharged, to get a ride back to the assisted. PERNELL remains available for any additional social service needs. ANAY Alfredo
[2023-09-12] MEDS: Magnesium Sulfate 20 GM/500 ML BAG IV (09:06)
[2023-09-12] MEDS: Acetaminophen 500 MG Tablet 1000 MG PO ×2 (09:22→18:35)
--- NOTE | 2023-09-12 16:24 | NURSING ---
assumed care of this patient at 1550 from MIRELA Serrato.
--- NOTE | 2023-09-12 16:55 | NURSING ---
BP 180/101 RA; pt talking at the time and legs crossed. Retaken in [place], 147/96, pulse 83. Reported to Amy Chirinos RN.
--- NOTE | 2023-09-12 17:11 | NURSING ---
1700 BP 152/95, pulse 72, resp16 Denies headache, dizziness, shortness of breath. MIRELA Kohler [facility] office nurse notified of BP results.
--- NOTE | 2023-09-12 17:54 | PCM.PN.OB ---
Subjective Subjective Pain well-controlled. Average lochia. Mild headache this morning that she received Tylenol for. Able to tolerate regular diet today. Objective Data Objective Data Vital Signs: Vital Signs Temp Pulse Resp BP Pulse Ox O2 Del Method 97.9 F 72 16 152/95 H 84 Room Air 09/12/23 09:00 09/12/23 17:00 09/12/23 13:00 09/12/23 17:00 09/12/23 13:20 09/12/23 13:00 Oxygen Delivery Method Room Air Weight: 147 kg Body Mass Index (BMI) 61.2 Intake & Output: Intake and Output for Last 24 Hours 09/10/23 09/11/23 09/12/23 23:59 23:59 23:59 Intake Total 750 / 750 2475.5 / 2475.5 Output Total 1600 / 1600 1999 / 1999 Balance -850 / -850 475.5 / 475.5 Lab / Micro Data 09/11/23 13:15 09/11/23 15:58 Physical Exam Narrative Awake alert, no acute distress Abdomen soft, nondistended, appropriate tenderness Incision is clean dry and intact. Extremities 2+ edema, + DTRs, no clonus Assessment & Plan (1) Pre-eclampsia in period: PLAN: Blood pressures still remain elevated. Increase Procardia to 60 mg p.o. daily twice daily. Magnesium distal continued after 24 hours. Discussed with patient portance of monitoring blood pressures make sure they are stable before she is discharged. Discussed with her importance of follow-up post operatively and monitoring blood pressures at home. Continue a Presalin 3 times daily as well. Reevaluate tomorrow to see if she can be discharged home. Doing well from postop surgery standpoint.
[2023-09-13] VITALS (11 sets, daily range): BP systolic 119–146; BP diastolic 63–89; PULSE 72–87; RESP 16; TEMP 36.8–37.1; O2SAT 100
[2023-09-13] MEDS: Acetaminophen 500 MG Tablet 1000 MG PO (08:30)
[2023-09-13] MEDS: NIFEdipine 60 MG Tablet PO (09:53)
[2023-09-13] MEDS: hydrALAZINE 10 MG Tablet PO (09:54)
--- NOTE | 2023-09-13 13:33 | PCM.OPRPT ---
Report of Operation Date of Procedure: 09/13/23 Pre-Operative Diagnosis: PMB, endometrial polyp Post-Operative Diagnosis: same Surgery/Procedure Performed:: Hysteroscopy, D&C, polypectomy Description of Surgical Findings:: Endometrial polyp at fundal aspect . Fluid deficit 300cc Surgeon: Rebekah Bazan financial sales professional: None ( [employer]astanislaw Son pa student ) Type of Anesthesia: MAC Specimen's removed: endometrial polyp and endometrial curetting Drains: none Estimated Blood Loss (mL): <5 Fluids Replaced: 600 Description of Procedure: Informed consent was obtained the patient was taken the operating room she was placed in supine position. She was given anesthesia. She was then placed in the [facility] where she was prepped and draped in the normal sterile fashion. bladder drained prior to procedure. At this time the weighted speculum was placed in the posterior fornix of vagina. Single-tooth tenaculum was used to gently grasp the anterior lip the cervix. At this time the uterine cavity was sounded to approximately 7 cm. Gentle dilatation was performed once adequate dilatation of the cervix was achieved the hysteroscope using normal saline as a distention medium was placed. Endometrium appeared scarred with some fibrotic appearing tissue. Polyp noted at fundal aspect. . Symphion resecting device used to obtain endometrial curettings and to perform polypectomy. Tissue will be sent to pathology for evaluation. Tenaculum removed. Good hemostasis. Instrument, lap count correct x 2. Vaginal Sweep was negative. Grafts/Implants Used: none Procedure Start Time: 13:27 Procedure Stop Time: 13:31 Complications none Admit VTE Documentation VTE Present on Admission: Yes VTE Mechan Device Prophylaxis: SCD's VTE Pharm Prophylaxis ordered?: No Reason prophylaxis not ordered:: Procedure Not Indicated
--- NOTE | 2023-09-13 13:58 | PCM.PROGNOTE ---
Subjective Subjective pt seen at bedside, doing well. pt reports headache treated with medication. pt reports no RUQ or epigastric pain. pt reports no visual changes. pt offers no other concerns. Objective Data Objective Data Vital Signs: Vital Signs Temp Pulse Resp BP Pulse Ox O2 Del Method 98.2 F 74 16 146/82 H 100 Room Air 09/13/23 11:00 09/13/23 11:02 09/13/23 11:00 09/13/23 11:02 09/13/23 02:00 09/13/23 02:00 Oxygen Delivery Method Room Air Weight: 147 kg Body Mass Index (BMI) 61.2 Intake & Output: Intake and Output for Last 24 Hours 09/11/23 09/12/23 09/13/23 23:59 23:59 23:59 Intake Total 750 / 750 2475.5 / 2475.5 Output Total 1600 / 1600 1999 Balance -850 / -850 475.5 / 475.5 Lab / Micro Data 09/11/23 13:15 09/11/23 15:58 Physical Exam Narrative Abd: soft, non distended. incision site dry and intact. NO RUQ pain. Const alert and oriented x3 General Appearance: cooperative and comfortable HEENT normocephalic Neck General: normal visual inspection GI soft to palpation and non-distended GI Narrative: Fundus firm Extremity normal to inspection and no calf tenderness Skin no rashes or lesions noted Neuro oriented x3 and CN's II-XII intact bilaterally Psych mental status grossly normal Assessment & Plan Assessment/Plan (1) Pre-eclampsia in period: (2) Post-operative pain: (3) Care and examination of lactating mother: (4) Status post primary low transverse section: PLAN: Plan HD#2 , Doing well- PP Pre eclampsia Routine care pain mgmt monitor VS ambulation continue procardia dc home follow up in office saturday09/16/23 at 2:50pm
--- NOTE | 2023-09-13 14:02 | DCINST_ITS ---
Discharge Instructions Diet Discharge Diet: No restrictions Activity May resume sexual activity in: 6-8 weeks Lifting Restrictions: 25 Dressing / Incision Call your doctor if your incision/area has: Continuous Slow Oozing, Sudden Increased Bleeding, Increased Pain/ Swelling, Increased Redness, Foul Smelling Discharge and Swelling at the incision site Call your doctor if you observe: Fever of 101 or Higher, Inability to urinate, Using more than 1 pad per hour and Uncontrolled pain Additional Dressing/Incision Instructions:: remove dressing at 7 days post op- if it becomes saturated prior to that time you may remove it. Let soap and water run over incision sites and dab dry. keep incision clean and dry. Follow Up Care Please Follow Up With: Rebekah Bazan MD When: 1-2 weeks post of incision check and again at 6 weeks post . [phone] Test Results: Test results from this visit will be discussed in further detail at your follow- up appointment, if applicable. Discharge Plan Admission Admit Date/Time: 09/11/23 14:00 Attending Provider: Indu Mchugh Primary Care Provider: Care Physician,Carissa Primary Discharge Orders/Prescriptions Prescriptions: New hydralazine 10 mg Tablet 10 mg PO BID 30 Days Qty: 60 0RF nifedipine 60 mg Tablet Extended Release 24hr 60 mg PO DAILY 30 Days Qty: 30 1RF Continued valacyclovir [Valtrex] 500 mg tablet 500 mg PO DAILY DHA 200 mg capsule PO sennosides-docusate sodium [Stool Softener-Stimulant Laxat] 8.6-50 mg Tablet 1 - 2 tab PO DAILY Qty: 30 0RF acetaminophen 500 mg Tablet 1,000 mg PO Q6 Qty: 20 0RF ibuprofen 600 mg Tablet 600 mg PO Q6H Qty: 20 0RF ondansetron HCl 4 mg tablet 4 mg PO Q8H PRN (Reason: nausea and vomiting) 10 Days Qty: 30 0RF Discontinued oxycodone 5 mg Tablet 5 - 10 mg PO Q4H PRN PRN (Reason: Pain Score 4-10) 5 Days Qty: 14 0RF Referrals / Follow Up: Care Physician,No Primary [Primary Care Provider] - Disposition Disposition (needs filled in before D/C Order can be placed): Home, Self Care
--- NOTE | 2023-09-13 14:05 | PCM.DC.BLA ---
Discharge Summary Date of Admission: 09/11/23 Date of Discharge: 09/13/23 Summary: Was admitted to [facility] on 09/11/2023 with preeclampsia severe features she had 24 hours of magnesium sulfate. Discharged home on hospital day #2 status post 24 hours of magnesium sulfate and was discharged home with Procardia 60 XL daily and hydralazine 10 mg twice daily. Patient will follow-up in the office on 09/16/2023. Will be sent home with post blood pressure monitoring. Meaningful Use Info Meaningful Use Diagnoses (Choose all that apply): None applicable Discharge Plan Admission Admit Date/Time: 09/11/23 14:00 Attending Provider: Indu Mchugh Primary Care Provider: Care PhysicianCarissa Primary Discharge Orders/Prescriptions Prescriptions: New hydralazine 10 mg Tablet 10 mg PO BID 30 Days Qty: 60 0RF nifedipine 60 mg Tablet Extended Release 24hr 60 mg PO DAILY 30 Days Qty: 30 1RF Continued valacyclovir [Valtrex] 500 mg tablet 500 mg PO DAILY DHA 200 mg capsule PO sennosides-docusate sodium [Stool Softener-Stimulant Laxat] 8.6-50 mg Tablet 1 - 2 tab PO DAILY Qty: 30 0RF acetaminophen 500 mg Tablet 1,000 mg PO Q6 Qty: 20 0RF ibuprofen 600 mg Tablet 600 mg PO Q6H Qty: 20 0RF ondansetron HCl 4 mg tablet 4 mg PO Q8H PRN (Reason: nausea and vomiting) 10 Days Qty: 30 0RF Discontinued oxycodone 5 mg Tablet 5 - 10 mg PO Q4H PRN PRN (Reason: Pain Score 4-10) 5 Days Qty: 14 0RF Referrals / Follow Up: Care Physician,Carissa Primary [Primary Care Provider] - Disposition Disposition (needs filled in before D/C Order can be placed): Home, Self Care
--- NOTE | 2023-09-13 14:54 | NURSING ---
BP monitoring system provided by Sofía Crespo RN. Discharge instructions given.
--- NOTE | 2023-09-13 16:27 | NURSING ---
1615 Modeling Teacher from 180 here. Baby sensor 13 removed.
== END 2023-09-13 16:20 | disposition home or self-care (01) ==
LOC: WPOUT 12:52 → WP 12:53 → WPOUT 14:17 → WP 14:17
PROVIDERS: Obstetrics & Gynecology; Admitting Provider Advanced Practice Midwife; Referring Provider Advanced Practice Midwife; Visit Provider Advanced Practice Midwife
DX: O14.15 Severe pre-eclampsia, complicating the puerperium (principal); R07.89 Other chest pain; O99.893 Other specified diseases and conditions complicating puerperium; R94.31 Abnormal electrocardiogram [ECG] [EKG]; R00.1 Bradycardia, unspecified; O99.63 Diseases of the digestive system complicating the puerperium; K21.9 Gastro-esophageal reflux disease without esophagitis; O99.355 Diseases of the nervous system complicating the puerperium; G47.33 Obstructive sleep apnea (adult) (pediatric); R06.02 Shortness of breath
CPT/HCPCS: 96365; 96375; 96366 ×2; 96376; 36415; 82565; 82570; 82962; 84156; 84450; 84460; 84550; 85027; 93005; 93306; J7120

== ENCOUNTER 2023-09-17 22:10 | Outpatient (CLI) | payer MEDICARE, MEDICAID, SELFPAY ==
[2023-09-17] VITALS (19 sets, daily range): BP systolic 145–173; BP diastolic 79–107; PULSE 50–86; RESP 16; TEMP 37.2; O2SAT 79–100; BMI 26.0
[2023-09-17 23:07] LABS: Bedside Glucose 92 mg/dL (74-106)
[2023-09-17] MEDS: NIFEdipine 30 MG Tablet PO (23:12)
[2023-09-17] MEDS: hydrALAZINE 10 MG Tablet PO (23:12)
[2023-09-18] VITALS (22 sets, daily range): BP systolic 117–132; BP diastolic 58–66; PULSE 67–138; O2SAT 93–100
[2023-09-18 00:06] LABS: Hematocrit 36.5 % (37-47); Hemoglobin 11.4 g/dL (12.0-15.0); Mean Corp Hgb Conc 31.2 g/dL (32-36); Mean Corpuscular Hgb 27.3 pg (27.0-32.0); Mean Corpuscular Volume 87.3 fL (81-99); Mean Platelet Vol. 9.6 fl (6.2-12.0); Platelet Count 411 K/mm3 (150-450); RBC Distribution Width CV 14.1 % (11.6-14.6); RBC Distribution Width SD 44.8 fl (35.1-43.9); Red Blood Count 4.18 M/mm3 (4.2-5.4); White Blood Count 7.9 K/mm3 (4.4-11.0)
[2023-09-18 00:08] LABS: AST(SGOT) 23 U/L (15-37); Alanine Aminotransfer ALT/SGPT 26 U/L (13-56); EST Glomerular Filtration Rate 31 mL/min (>60); Est Glom Filt Rate - Afr Amer 37 mL/min (>60); Estimated Creatinine Clearance 34.54 ml/min; Uric Acid 6.1 mg/dL (2.6-6.0)
--- NOTE | 2023-09-18 01:45 | NURSING ---
Patient given verbal and written discharge instructions. States she has an appointment on Saturday with Dr Dominguez. Encouraged to take additional dose of Hydralazine if BP is elevated. Leaving unit via ambulation with [address] staff.
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
== END 2023-09-18 01:50 | disposition home or self-care (01) ==
LOC: WPOUT 22:16 → WP 22:16
PROVIDERS: Obstetrics & Gynecology; PCP Physician Assistant Medical; Referring Provider Advanced Practice Midwife; Visit Provider Advanced Practice Midwife
DX: O14.95 Unspecified pre-eclampsia, complicating the puerperium (principal); O99.355 Diseases of the nervous system complicating the puerperium; O99.345 Other mental disorders complicating the puerperium; G47.33 Obstructive sleep apnea (adult) (pediatric); F43.10 Post-traumatic stress disorder, unspecified; Z79.899 Other long term (current) drug therapy
CPT/HCPCS: 36415; 82565; 82962; 84450; 84460; 84550; 85027; 99221; G0378

== ENCOUNTER 2023-09-21 10:09 | Emergency (ER) | payer MEDICARE, MEDICAID, SELFPAY ==
[2023-09-21 10:09] VITALS: BP 149/99; PULSE 71; RESP 16; TEMP 36.2; O2SAT 100; BMI 24.7
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
== END 2023-09-21 10:57 | disposition home or self-care (01) ==
PROVIDERS: Emergency Provider Emergency Medicine; PCP Physician Assistant Medical; Visit Provider Emergency Medicine
DX: O11.5 Pre-existing hypertension with pre-eclampsia, complicating the puerperium (principal); G47.33 Obstructive sleep apnea (adult) (pediatric); Z3A.00 Weeks of gestation of pregnancy not specified
CPT/HCPCS: 99282

== ENCOUNTER 2023-09-21 22:03 | Emergency (ER) | payer MEDICARE, MEDICAID, SELFPAY ==
[2023-09-21 22:03] VITALS: BP 169/106; PULSE 60; RESP 18; TEMP 36.2; O2SAT 100; BMI 24.7
[2023-09-21 22:14] VITALS: BP 147/103
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
[2023-09-21] MEDS: hydrALAZINE 10 MG Tablet 20 MG PO (23:04)
[2023-09-21 23:05] VITALS: BP 139/99; PULSE 60; RESP 15; O2SAT 98
[2023-09-21 23:08] LABS: Absolute Lymphocyte Count 3.09 X10^3/uL (0.83-4.51); Absolute Neutrophil Count 3.4 X10^3/uL (2.0-7.7); Basophil# 0.08 X10^3/uL; Eosinophil# 0.29 X10^3/uL; Eosinophils% 3.8 % (0-5); Hematocrit 32.9 % (37-47); Hemoglobin 10.2 g/dL (12.0-15.0); Lymphocyte # 3.09 X10^3/ul (0.83-4.51); Lymphocyte % 40.4 % (19-41); Mean Corpuscular Hgb 27.2 pg (27.0-32.0); Mean Corpuscular Volume 87.7 fL (81-99); Monocyte# 0.72 X10^3/uL; Monocyte% 9.4 % (0-10); NRBC Flagged by Analyzer 0 % (0-5); Neutrophil # 3.43 X10^3/uL (2.7-7.7); Neutrophil % 44.9 % (47-70); Platelet Count 357 K/mm3 (150-450); RBC Distribution Width CV 14.2 % (11.6-14.6); RBC Distribution Width SD 45.2 fl (35.1-43.9); Red Blood Count 3.75 M/mm3 (4.2-5.4); White Blood Count 7.7 K/mm3 (4.4-11.0)
[2023-09-21 23:22] LABS: ALB/GLOB Ratio 0.9 RATIO (0.9-2.4); AST(SGOT) 18 U/L (15-37); Alanine Aminotransfer ALT/SGPT 19 U/L (13-56); Albumin, Serum 3.3 g/dL (3.2-5.0); Alkaline Phosphatase 101 U/L (45-117); Anion Gap 5 (5-15); BUN 18 mg/dL (7-18); BUN/Creat Ratio 11.7 RATIO (10-20); Calcium,Total 9.4 mg/dL (8.5-10.1); Chloride 107 mmol/L (98-107); Creatinine, Serum 1.54 mg/dL (0.55-1.02); EST Glomerular Filtration Rate 42 mL/min (>60); Est Glom Filt Rate - Afr Amer 51 mL/min (>60); Estimated Creatinine Clearance 43.83 ml/min; Globulin 3.6 g/dL (2.2-4.2); Glucose 95 mg/dL (74-106); Potassium 4.4 mmol/L (3.5-5.1); Protein, Total 6.9 g/dL (6.4-8.2); Sodium Level 137 mmol/L (136-145); Uric Acid 4.6 mg/dL (2.6-6.0)
[2023-09-21 23:27] VITALS: BP 134/97; PULSE 60; RESP 14; O2SAT 97
[2023-09-21 23:44] VITALS: BP 135/93
== END 2023-09-21 23:45 | disposition home or self-care (01) ==
PROVIDERS: Emergency Provider Emergency Medicine; PCP Physician Assistant Medical; Visit Provider Emergency Medicine
DX: O11.5 Pre-existing hypertension with pre-eclampsia, complicating the puerperium (principal); G47.33 Obstructive sleep apnea (adult) (pediatric); Z3A.00 Weeks of gestation of pregnancy not specified
CPT/HCPCS: 80053; 84550; 85025; 99284

== ENCOUNTER 2023-09-24 13:37 | Emergency (ER) | payer MEDICARE, MEDICAID, SELFPAY ==
[2023-09-24 13:38] VITALS: BP 164/98; PULSE 63; RESP 14; TEMP 35.9; O2SAT 100; BMI 24.7
--- NOTE | 2023-09-24 13:40 | ED.RN ---
FOLLOWING ALGORITHM, DR. EVELYN SYLVESTER TO EVALUATE IN ED, CONSULT OB TO VERIFY. SPOKE W/ DANIEL IN OB, NEEDS SEEN IN ED FIRST.
--- NOTE | 2023-09-24 14:49 | RAD_ITS ---
STUDY: X-RAY CHEST REASON FOR EXAM: Female, 33 years old. Chest pain TECHNIQUE: Single AP portable view of the chest. COMPARISON: None. FINDINGS: EKG electrodes are seen. The lungs are clear and expanded. There is no demonstrated pleural abnormality. Normal size heart. Normal mediastinum and torin. Normal visualized pulmonary arteries. Normal visualized aortic arch and descending thoracic aorta. Normal visualized thoracic spine. Normal visualized ribs, clavicles, and shoulders. There is no demonstrated abnormality of the visualized soft tissue structures of the upper abdomen. RAD/Chest 1 View (Portable) IMPRESSION: Normal x-ray examination of the chest. Electronically Signed: Costa Desai MD at 15:19 EST ,
[2023-09-24] MEDS: Mag Hydrox/Al Hydrox/Simeth 30 ML UDC PO (14:56)
[2023-09-24] MEDS: hydrALAZINE 20 MG/ML Vial 10 MG IV (14:56)
[2023-09-24] MEDS: Pantoprazole Sodium 40 MG Tablet PO (14:56)
[2023-09-24 14:57] VITALS: BP 146/91; PULSE 61
[2023-09-24 15:00] LABS: Absolute Lymphocyte Count 2.19 X10^3/uL (0.83-4.51); Absolute Neutrophil Count 2.7 X10^3/uL (2.0-7.7); Basophil# 0.07 X10^3/uL; Basophil% 1.2 % (0-1); Eosinophil# 0.26 X10^3/uL; Eosinophils% 4.5 % (0-5); Hematocrit 37.4 % (37-47); Hemoglobin 11.5 g/dL (12.0-15.0); Lymphocyte # 2.19 X10^3/ul (0.83-4.51); Lymphocyte % 38.1 % (19-41); Mean Corp Hgb Conc 30.7 g/dL (32-36); Mean Corpuscular Hgb 26.7 pg (27.0-32.0); Mean Corpuscular Volume 86.8 fL (81-99); Mean Platelet Vol. 9.6 fl (6.2-12.0); Monocyte# 0.51 X10^3/uL; Monocyte% 8.9 % (0-10); NRBC Flagged by Analyzer 0 % (0-5); Platelet Count 409 K/mm3 (150-450); RBC Distribution Width SD 44.6 fl (35.1-43.9); Red Blood Count 4.31 M/mm3 (4.2-5.4); White Blood Count 5.8 K/mm3 (4.4-11.0)
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
[2023-09-24 15:09] LABS: Color, Urine Straw (Yellow); Glucose, Dipstick Normal (Normal); Ketone-Dipstick Negative (Negative); Leukocyte Esterase-Dipstick 500 /ul (Negative); Nitrite-Dipstick Negative (Negative); Occult Blood-Urine 250 /ul (Negative); Protein-Dipstick 15 mg/dl (Negative); Urine Bilirubin Dipstick Negative (Negative); Urine Clarity Sl. Cloudy (Clear); Urine Urobilinogen Normal (Normal); Urine pH 6.5 (5.0 - 8.0)
[2023-09-24 15:14] LABS: Bacteria RARE /hpf (None Seen); Mucous, Urine 1+ /hpf (<or=2+); Red Blood Cells-Urine 0-5 SEEN /hpf (0-5); Squamous Epithelial Cells - UA 0-5 SEEN /hpf (5-10); White Blood Cells 25-50 SEEN /hpf (0-5)
[2023-09-24 15:18] LABS: ALB/GLOB Ratio 0.9 RATIO (0.9-2.4); AST(SGOT) 20 U/L (15-37); Alanine Aminotransfer ALT/SGPT 22 U/L (13-56); Albumin, Serum 3.8 g/dL (3.2-5.0); Alkaline Phosphatase 113 U/L (45-117); Anion Gap 5 (5-15); BUN 10 mg/dL (7-18); BUN/Creat Ratio 7.5 RATIO (10-20); Calcium,Total 9.7 mg/dL (8.5-10.1); Chloride 107 mmol/L (98-107); Creatinine, Serum 1.33 mg/dL (0.55-1.02); EST Glomerular Filtration Rate 49 mL/min (>60); Est Glom Filt Rate - Afr Amer 60 mL/min (>60); Estimated Creatinine Clearance 50.75 ml/min; Globulin 4.2 g/dL (2.2-4.2); Glucose 86 mg/dL (74-106); LDH 241 U/L (84-246); Potassium 3.8 mmol/L (3.5-5.1); Sodium Level 140 mmol/L (136-145); Troponin-I HS (w/2H Reflex) 9 pg/mL (3.0-54.0)
[2023-09-24 15:42] VITALS: BP 149/90
[2023-09-24 16:55] LABS: Reflex Troponin-HS? (from REC) Y
== END 2023-09-24 16:52 | disposition home or self-care (01) ==
PROVIDERS: Emergency Provider Emergency Medicine; PCP Physician Assistant Medical; Visit Provider Emergency Medicine
DX: R07.9 Chest pain, unspecified (principal); K21.9 Gastro-esophageal reflux disease without esophagitis; I10 Essential (primary) hypertension; G47.33 Obstructive sleep apnea (adult) (pediatric); Z79.899 Other long term (current) drug therapy
CPT/HCPCS: 71045; 80053; 81001; 83615; 84484; 85025; 87086; 87088; 93005; 96374; 99285; A4216

== ENCOUNTER 2023-12-09 05:55 | Emergency (ER) | payer MEDICARE, MEDICAID, SELFPAY ==
[2023-12-09 05:56] VITALS: BP 158/69; PULSE 78; RESP 16; TEMP 36.6; O2SAT 99; BMI 25.7
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
[2023-12-09 06:25] VITALS: BP 150/60; PULSE 75; RESP 16; TEMP 36.4; O2SAT 97
== END 2023-12-09 06:26 | disposition home or self-care (01) ==
LOC: ED 06:20
PROVIDERS: Emergency Provider Emergency Medicine; PCP Physician Assistant Medical; Visit Provider Emergency Medicine
DX: J06.9 Acute upper respiratory infection, unspecified (principal); G47.33 Obstructive sleep apnea (adult) (pediatric); Z79.899 Other long term (current) drug therapy
CPT/HCPCS: 99282

== ENCOUNTER 2024-01-27 15:18 | Emergency (ER) | payer MEDICARE, MEDICAID, SELFPAY ==
[2024-01-27 15:19] VITALS: BP 155/90; PULSE 73; RESP 16; TEMP 36; O2SAT 100; BMI 24.9
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
[2024-01-27 16:33] VITALS: BP 130/72; PULSE 78; RESP 16; TEMP 37.2; O2SAT 96
== END 2024-01-27 16:36 | disposition home or self-care (01) ==
PROVIDERS: Emergency Provider Student in an Organized Health Care Education/Training Program; PCP Physician Assistant Medical; Visit Provider Student in an Organized Health Care Education/Training Program
DX: M65.88 Other synovitis and tenosynovitis, other site (principal); M25.532 Pain in left wrist; G47.33 Obstructive sleep apnea (adult) (pediatric)
CPT/HCPCS: 99283

== ENCOUNTER 2024-03-11 21:01 | Emergency (ER) | payer MEDICARE, MEDICAID, SELFPAY ==
[2024-03-11 21:02] VITALS: BP 133/81; PULSE 60; RESP 18; TEMP 36.9; O2SAT 100; BMI 25.0
--- NOTE | 2024-03-11 21:05 | RAD_ITS ---
EXAM: XR RIGHT ELBOW COMPLETE, 3 OR MORE VIEWS CLINICAL INDICATION: INJURY TECHNIQUE: Frontal, lateral and oblique views of the right elbow. COMPARISON: No relevant prior studies available. FINDINGS: BONES/JOINTS: Unremarkable. There is no displacement of the anterior or posterior fat pads. No acute fracture. No subluxation. Normal alignment. Preservation of the joint space. No destructive or sclerotic lesions. SOFT TISSUES: Unremarkable. No soft tissue swelling or gas. No radiopaque foreign body. RAD/Elbow min 3 Views IMPRESSION: Negative right elbow. Electronically Signed: Brandon Quijano MD at 21:32 EDT ,
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
[2024-03-11] MEDS: Acetaminophen 500 MG Tablet 1000 MG PO (21:54)
[2024-03-11 21:55] VITALS: BP 119/74; PULSE 61; RESP 16; TEMP 37.2; O2SAT 98
== END 2024-03-11 21:57 | disposition home or self-care (01) ==
LOC: ED 21:45
PROVIDERS: Emergency Provider Emergency Medicine; PCP Physician Assistant Medical; Visit Provider Emergency Medicine
DX: O9A.211 Injury, poisoning and certain other consequences of external causes complicating pregnancy, first trimester (principal); S50.01XA Contusion of right elbow, initial encounter; Z3A.01 Less than 8 weeks gestation of pregnancy; X58.XXXA Exposure to other specified factors, initial encounter
CPT/HCPCS: 73080; 99282

== ENCOUNTER 2024-09-17 12:45 | Inpatient (IN) | payer MEDICARE, MEDICAID, SELFPAY ==
[2024-09-17] VITALS (37 sets, daily range): BP systolic 109–154; BP diastolic 68–125; PULSE 57–83; RESP 11–19; TEMP 36.1–37.2; O2SAT 98–100; BMI 27.1
[2024-09-17] MEDS: Lactated Ringers 1,000 ML 999 ML IV (13:00)
[2024-09-17 13:21] LABS: Hematocrit 34.7 % (37-47); Hemoglobin 10.9 g/dL (12.0-15.0); Mean Corp Hgb Conc 31.4 g/dL (32-36); Mean Corpuscular Hgb 26.8 pg (27.0-32.0); Mean Corpuscular Volume 85.3 fL (81-99); Mean Platelet Vol. 9.8 fl (6.2-12.0); Platelet Count 315 K/mm3 (150-450); RBC Distribution Width CV 12.6 % (11.6-14.6); RBC Distribution Width SD 38.7 fl (35.1-43.9); Red Blood Count 4.07 M/mm3 (4.2-5.4); White Blood Count 5.9 K/mm3 (4.4-11.0)
[2024-09-17] MEDS: Acetaminophen 500 MG Tablet 1000 MG PO ×2 (13:26→18:52)
[2024-09-17] MEDS: Sodium Citrate/Citric Acid 30 ML UDC PO (13:27)
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
[2024-09-17] MEDS: Azithromycin 500 MG in 0.9% Normal Saline (250mL Bag) 250 ML 255 MG IV (13:45)
[2024-09-17] MEDS: Cefazolin 2 GM in Syringe IV (13:45)
[2024-09-17 14:08] LABS: Syphilis Antibodies Non-reactive
[2024-09-17] MEDS: Triamcinolone Acetonide 40 MG/ML Vial IM (14:30)
--- NOTE | 2024-09-17 14:33 | OP.PCM_ITS ---
Operative Report (OB) Cecarean Details Procedure Type: low transverse Date of Procedure: 09/17/24 Procedure Start Time: 13:59 Procedure Stop Time: 14:34 Time of Delivery: 14:05 Pre-Operative Diagnosis: Repeat Elective and Other ( labor, 34 weeks gestation, high risk , history of preeclampsia ) Other Pre-Operative diagnosis: labor, 34 weeks gestation, high risk , history of preeclampsia Post-Operative Diagnosis: Same as Pre-operative diagnosis Classification: JAZ Type of Anesthesia: Spinal Antibiotic Given: Ancef 2 grams IV x1 Drain: Collazo to straight drain Estimated Blood Loss: 500 Fluids Replaced: 1500 Findings Description of surgery: After informed consent was obtained the patient was taken the operating room she was given spinal anesthesia. She was then placed in the supine position. She was prepped and draped in the normal sterile fashion. Anesthesia was found to be adequate. At this time a Pfannenstiel skin incision was made with a knife - the previous keloid incision was removed in an elliptical fashion. this incision was carried down to the underlying layer of the fascia. The fascial incision was then extended laterally using traction. Attention was then turned to the superior aspect of the fascial edge was grasped with 2 straight Remington clamps tented up and the rectus muscle dissected off bluntly. Rectus muscles were then in the midline bluntly and peritoneum was entered bluntly. Gentle opposing traction was placed. At this time the vesicouterine peritoneum was identified. Scalpel was used to make a uterine incision in a low transverse fashion. The uterus was then entered bluntly gentle opposing traction was placed to extend this incision. Membranes were ruptured clear. Infant's head was brought to the uterine incision was delivered atraumatically. was vigorous at delivery and delayed cord clamping performed. delayed cord clamping performed. Cord was clamped and cut was handed to the waiting nursery team. The Placenta was removed from the uterus. The uterus was then removed from the abdominal cavity. The uterus was cleared of all clots and debris using a lap. At this time the uterine incision was reapproximated using #1 Vicryl in a running locked fashion. Hemostasis was appreciated. Posterior cul-de-sac was then cleared of all clots and debris. Uterus was placed back in the abdominal cavity. Gutters were cleared of all clots and debris. Uterine incision was reevaluated and noted to be of excellent hemostasis. At this time the peritoneum was grasped with Kellys reapproximated using #2 Vicryl suture in a running fashion. there was a previous defect noted in the rectus muscle on l eft- appeared as if it were cut previously- this was repaired using 2-0 vicryl in mattress suture fashion. Fascia was then reapproximated using #1 Vicryl in a running fashion. Subcu layer was irrigated with NS, reapproximated with #2 0 plain gut suture in an interrupted fashion. Kenalong 40mg (1cc) was injected around the incision site to prevent future keloid formation. Subcu layer was closed using 4-0 Monocry in a subcu fashion. Dry sterile dressing was applied. Instrument lap needle count correct ?2. Anticipated normal postoperative course. Surgical findings: Normal tubes and ovaries bilaterally Presentation: Vertex Amniotic Membrane Rupture Type: Artificial Amniotic Fluid Description: Clear Placental Delivery Description: Expressed Placenta Disposition: Sent to Pathology Specimen collected: Yes Description of specimen(s) removed: placenta Cord Vessel Description: 3 Vessels Cord Entanglement: None Cord Gases: ABG and VBG A gender: Female (1 minute): 8 (5 minute): 8 Delayed Cord Clamping: Yes Collection Supervisor customs compliance analyst: Yes Printing Estimator: Corby Magdaleno Tasks completed by junior sales assistant: Opening & closing, Dissecting tissue and Retracting Additional junior sales assistant?: Yes Additional Security Site Supervisor #2: yanna RICO Tasks completed by junior sales assistant #2: Retracting and Other (cutting sutures ) Additional junior sales assistant?: No Complications Complications: No
[2024-09-17] MEDS: Oxytocin 15 Units/NS 250ml 15 UNITS/250 ML IV.SOLN 83 UNITS IV (15:18)
[2024-09-17] MEDS: Ketorolac 30 MG/ML Syringe IV ×2 (15:30→20:44)
--- NOTE | 2024-09-17 16:47 | NURSING ---
1635- IBCLC at bedside to initiate pumping. When IBCLC was setting up pump to review, pt called someone to try and get ahold of FOB and stated well I'm just trying to get ahold of him to let him know I had his daughter today. Person on the phone then handed phone to FOB and pt again stated I had your daughter today, just thought you should know. She is doing okay, I had a c/s and am struggling to move right now and she needs some help breathing but the FOB seemed uninterested and told pt. he had to end the call. Once call ended, IBCLC asked if pt needed some privacy or wanted me to stay around. Pt. didn't say much, then got tearful. IBCLC asked what I could do to support pt best, but pt didn't say anything and picked up her cell phone to text someone. IBCLC asked pt. if she wanted me to return at a later time, but stated she wanted to pump now. Attempted to give pump education, but pt. was on cell phone texting again. IBCLC stated I could come back later, but pt wanted to pump so education given and instructions written on patient white board, and pt began pumping. Encouragement and support given.
[2024-09-17] MEDS: Lactated Ringers 1,000 ML 100 ML IV (18:54)
[2024-09-17] MEDS: 0.9% Saline Lock 10 ML Syringe IV (20:44)
[2024-09-18] VITALS (12 sets, daily range): BP systolic 115–134; BP diastolic 60–81; PULSE 57–78; RESP 16; TEMP 36.5–37; O2SAT 97–99
[2024-09-18] MEDS: DiphenhydrAMINE 25 MG Capsule PO (01:07)
[2024-09-18] MEDS: Acetaminophen 500 MG Tablet 1000 MG PO ×4 (01:08→20:08)
[2024-09-18] MEDS: Ketorolac 30 MG/ML Syringe IV ×2 (03:30→10:30)
[2024-09-18] MEDS: 0.9% Saline Lock 10 ML Syringe IV ×3 (03:31→10:29)
[2024-09-18 06:31] LABS: Hematocrit 30.3 % (37-47); Hemoglobin 9.7 g/dL (12.0-15.0); Mean Corpuscular Hgb 27.6 pg (27.0-32.0); Mean Corpuscular Volume 86.1 fL (81-99); Mean Platelet Vol. 10.1 fl (6.2-12.0); Platelet Count 280 K/mm3 (150-450); RBC Distribution Width CV 12.6 % (11.6-14.6); RBC Distribution Width SD 39.4 fl (35.1-43.9); Red Blood Count 3.52 M/mm3 (4.2-5.4); White Blood Count 10.7 K/mm3 (4.4-11.0)
--- NOTE | 2024-09-18 07:59 | PCM.PN.CNM ---
Subjective Subjective Patient seen at bedside. Denies headache, vision changes, SOB or CP. Ambulating and voiding without difficulty. Passing flatus. Pumping and keeping for baby in NICU. Objective Data Objective Data Vital Signs: Vital Signs Temp Pulse Resp BP Pulse Ox O2 Del Method 98.1 F 57 L 16 115/67 97 Room Air 09/18/24 04:42 09/18/24 04:42 09/18/24 04:42 09/18/24 04:42 09/18/24 04:42 09/18/24 04:42 Oxygen Delivery Method Room Air Weight: 144 lb Body Mass Index (BMI) 27.1 Intake & Output: Intake and Output for Last 24 Hours 09/16/24 09/17/24 09/18/24 23:59 23:59 23:59 Intake Total 1525 / 1525 1000 / 1000 Output Total 750 / 750 300 / 300 Balance 775 / 775 700 / 700 Lab / Micro Data Attestation: I reviewed the patient's lab results. 09/18/24 06:03 Labs: Laboratory Results - last 24 hr 09/17/24 13:00: WBC 5.9, RBC 4.07 L, Hgb 10.9 L, Hct 34.7 L, MCV 85.3, MCH 26.8 L, MCHC 31.4 L, RDW Std Deviation 38.7, RDW Coeff of Jacinto 12.6, Plt Count 315, MPV 9.8, Syphilis Total Ab Non-reactive, Blood Type O POSITIVE, Antibody Screen NEGATIVE 09/18/24 06:03: WBC 10.7, RBC 3.52 L, Hgb 9.7 L, Hct 30.3 L, MCV 86.1, MCH 27.6, MCHC 32.0, RDW Std Deviation 39.4, RDW Coeff of Jacinto 12.6, Plt Count 280, MPV 10.1 ROS Eyes Eyes: Denies blurry vision, spots in vision or tunnel vision ENT HEENT: Denies dizziness or headache(s) Cardiovascular Cardiovascular: Reports systems reviewed and no addt'l complaints, except as documented, dizziness and dyspnea Respiratory/Chest Respiratory/Chest: Reports systems reviewed and no addt'l complaints, except as documented Gastrointestinal Gastrointestinal: Reports systems reviewed and no addt'l complaints, except as documented Genitourinary Genitourinary: Reports systems reviewed and no addt'l complaints, except as documented Neurologic Neurologic: Denies abnormal speech, dizziness, headache(s), syncope or vertigo Psychiatric Psychiatric: Reports systems reviewed and no addt'l complaints, except as documented Physical Exam Const alert and no apparent distress General Appearance: cooperative Orientation / Consciousness: awake, oriented to person and oriented to place Exam Limitations: no limitations HEENT normocephalic Eyes General Eye: normal appearance of both eyes Neck full ROM Chest Chest: symmetrical chest wall rise Resp normal respiratory effort, normal air movement and clear to auscultation bilaterally Auscultation: clear to auscultation bilaterally Cardio regular rate and regular rhythm GI normal to inspection, nondistended, normoactive bowel sounds Uterus Palpation: uterus fundus firm Extremity full ROM and no calf tenderness Skin no rashes or lesions noted Neuro oriented x3 Psych mental status grossly normal and activity/motor behavior normal Assessment & Plan (1) Previous delivery affecting : (2) Care and examination of lactating mother: (3) Post-operative pain: (4) Major depressive disorder, recurrent, moderate: (5) Mild intellectual disabilities: (6) Adjustment disorder with anxiety: (7) Borderline personality disorder: PLAN: Plan POD 1 Repeat C/S Pain control No current BP or psych meds in the past year BP stable now Social Service Consult- LIMITED resources/ no transportation/ has 1 year old at home Pumping and keeping for baby in NICU Possible discharge tomorrow
[2024-09-18] MEDS: Senna/Docusate Sodium 1 Tablet PO (10:29)
[2024-09-18] MEDS: Ibuprofen 600 MG Tablet PO ×2 (14:15→20:08)
[2024-09-19 01:48] VITALS: BP 132/82; PULSE 62; PULSE 63; RESP 16; TEMP 37.1; O2SAT 99
[2024-09-19] MEDS: Ibuprofen 600 MG Tablet PO ×2 (01:51→08:07)
[2024-09-19] MEDS: Acetaminophen 500 MG Tablet 1000 MG PO ×2 (01:51→08:08)
--- NOTE | 2024-09-19 07:44 | PCM.PN.OB ---
Subjective Subjective Doing well. Ambulating and voiding without difficulty. Mild lochia. Baby in SCN at [place]. IUD planned at 6-8 weeks Objective Data Objective Data Vital Signs: Vital Signs Temp Pulse Resp BP Pulse Ox O2 Del Method 98.7 F 63 16 132/82 H 99 Room Air 09/19/24 01:48 09/19/24 01:48 09/19/24 01:48 09/19/24 01:48 09/19/24 01:48 09/19/24 01:48 Oxygen Delivery Method Room Air Weight: 65.317 kg Body Mass Index (BMI) 27.1 Intake & Output: Intake and Output for Last 24 Hours 09/17/24 09/18/24 09/19/24 23:59 23:59 23:59 Intake Total 1525 / 1525 1000 / 1000 Output Total 750 / 750 600 / 600 Balance 775 / 775 400 / 400 Lab / Micro Data 09/18/24 06:03 ROS Constitutional Constitutional: Denies fatigue, fever(s) or malaise Eyes Eyes: Denies change in vision ENT HEENT: Denies dizziness or headache(s) Cardiovascular Cardiovascular: Denies chest pain, dyspnea or lightheadedness Respiratory/Chest Respiratory/Chest: Denies cough or dyspnea Gastrointestinal Gastrointestinal: Denies change in bowel habits Genitourinary Genitourinary: Denies burning urination or genital lesions Integumentary Integumentary: Denies rash Neurologic Neurologic: Denies confusion, dizziness, headache(s), numbness or weakness Physical Exam Const alert General Appearance: cooperative GI GI Narrative: soft, moderate distention, fundus firm, appropriately tender. Abdominal bandage clean dry and intact Assessment & Plan (1) S/P : PLAN: Plan Discharge home follow up one week
--- NOTE | 2024-09-19 07:55 | DS.PCM_ITS ---
Providers Date of Admission: 09/17/24 Date of Discharge: 09/19/24 Primary Care Physician: NOLAN Logan Reason For Visit: REPEAT Diagnosis Discharge Diagnosis (1) S/P : Status: Acute Code(s): Z98.891 - History of uterine scar from previous surgery Plan Discharge home follow up one week Medications at Discharge Home Medications amoxicillin 500 mg capsule 500 mg PO Q8 03/11/24 [id number] 1 mg tablet tab PO 03/11/24 Hospital Course Operations section Procedures None Summary of Care Provided Minutes Spent on Discharge: 20 Hospital Course: Presented in [place]. Repeat c/s. Baby transferred to [facility] at [place]. Uncomplicated course Physical Exam Const alert General Appearance: cooperative GI GI Narrative: soft, moderate distention, fundus firm, appropriately tender. Abdominal bandage clean dry and intact Weight / BMI Weight Weight: 65.317 kg Body Mass Index (BMI) 27.1 ABG / Lab / Microbiology Data 09/18/24 06:03 D/C Instructions Discharge Diet: No restrictions May resume sexual activity in: 4-6 weeks Lifting Restrictions: 20 pounds Additional Activity Instructions: Nothing in the vagina for 4-6 weeks. You may return to work/school in 6 weeks. Call your doctor if your incision/area has: Continuous Slow Oozing, Sudden Increased Bleeding, Increased Pain/ Swelling, Increased Redness and Foul Smelling Discharge Call your doctor if you observe: Fever of 101 or Higher and Using more than 1 pad per hour (for 2 hours) Suture Line Care: Avoid Pulling/Pushing and Avoid Pinching/Bending Cleanse incision/area with: Keep Dressing Clean & Dry DC O2, CPAP, BIPAP Needs Home O2 Discharge instructions: No Please Follow Up With: Lianna Dominguez MD When: Call to make an appointment for an incision check in 1-2 [phone]. You will need a post check in 6 weeks. Meaningful Use Info Meaningful Use Meaningful Use Diagnoses (Choose all that apply): None applicable Ischemic Stroke Statin Dosing Therapy Reference: STATIN DOSE THERAPY REFERENCE: * Patients > 75 years receive moderate or high dose statin therapy. * Patients 75 years or YOUNGER should receive HIGH intensity statin dose unless contraindicated. You will be required to document reason for non-treatment if statin daily dose does not meet guidelines. HIGH DOSE STATIN THERAPY DAILY Atorvastatin > than or = to 40 mg Rosuvastatin > than or = to 20 mg Amlodipine + Atorvastatin > than or = to 2.5/40 mg Ezetimibe + Simvastatin 10/80 mg Simvastatin 80mg Discharge Plan Admission Admit Date/Time: 09/17/24 12:45 Primary Reason for Your Visit: labor Attending Provider: Rebekah Bazan Primary Care Provider: Lauren Reilly Discharge Orders/Prescriptions Prescriptions: No Action qrvunubb-[id number]-[id number] 1 mg tablet PO amoxicillin 500 mg capsule 500 mg PO Q8 Referrals / Follow Up: Lauren Reilly, PA [Primary Care Provider] - Disposition Disposition (needs filled in before D/C Order can be placed): Home, Self Care
[2024-09-19] MEDS: Senna/Docusate Sodium 1 Tablet PO (08:07)
[2024-09-19 08:10] VITALS: BP 122/84; PULSE 70; RESP 16; TEMP 37
== END 2024-09-19 11:55 | disposition home or self-care (01) | DRG 788 ==
LOC: WPOUT 12:56 → WP 12:56
PROVIDERS: Advanced Practice Midwife; Obstetrics & Gynecology; Admitting Provider Obstetrics & Gynecology; PCP Physician Assistant Medical; Referring Provider Obstetrics & Gynecology; Visit Provider Obstetrics & Gynecology
DX: O34.211 Maternal care for low transverse scar from previous cesarean delivery (principal); Z3A.34 34 weeks gestation of pregnancy; F70 Mild intellectual disabilities; O99.344 Other mental disorders complicating childbirth; Z37.0 Single live birth; Z59.82 Transportation insecurity; Z87.59 Personal history of other complications of pregnancy, childbirth and the puerperium
CPT/HCPCS: 36415; 59025; 59050; 85027; 86780; 86850; 86900; 86901; 99221; A4216; G0378; J2405